=== PATIENT | male | born 2000 | race Caucasian/White ===

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

== ENCOUNTER → 2018-09-24 | Outpatient (CLI) | payer SELFPAY | LOC: M OUTALCOH 11:21 | PROVIDERS: ATTEND Psychiatry & Neurology Psychiatry | DX: Z03.89 Encounter for observation for other suspected diseases and conditions ruled out (principal) ==

== ENCOUNTER 2018-10-01 09:41 | Outpatient (RCR) | payer SELFPAY | END 2018-10-14 | LOC: M OUTALCOH 09:41 | PROVIDERS: ATTEND Psychiatry & Neurology Psychiatry | DX: F12.20 Cannabis dependence, uncomplicated (principal); F17.200 Nicotine dependence, unspecified, uncomplicated ==

== ENCOUNTER → 2019-06-23 | Outpatient (REF) | payer OTHER ==
[2019-06-23 14:35] LABS: CHLAMYDIA DNA AMPLIFICATION NEGATIVE (NEGATIVE); GC DNA AMPLIFICATION NEGATIVE (NEGATIVE)
== END ==
LOC: M LAB REF 11:52
PROVIDERS: ATTEND Surgery
DX: A64 Unspecified sexually transmitted disease (principal)

== ENCOUNTER 2019-10-01 22:22 | Emergency (ER) | payer MEDICAID, OTHER ==
[~2019-10-01] VITALS: Ht 175.3 cm; Wt 72.7 kg
[2019-10-01 22:22] VITALS: BP 133/70
[2019-10-01] MEDS ORDERED: PRED20TA PO (22:49)
[2019-10-01] MEDS ORDERED: ELIM5CRE2 TOP (22:49)
[2019-10-01] MEDS ORDERED: HYDR-643 PO (22:49)
[2019-10-01] MEDS ORDERED: hydrOXYzine 25 MG TAB PO STA (22:54)
[2019-10-01] MEDS ORDERED: NIX CREME RINSE 1% 60 ML KIT TOP STA (22:54)
[2019-10-01] MEDS ORDERED: predniSONE 20 MG TAB PO ONE (23:00)
== END 2019-10-01 23:07 | disposition home or self-care (01) ==
LOC: M ED 22:22
DX: B86 Scabies (principal); R21 Rash and other nonspecific skin eruption; F17.218 Nicotine dependence, cigarettes, with other nicotine-induced disorders; F41.9 Anxiety disorder, unspecified; F32.9 Major depressive disorder, single episode, unspecified

== ENCOUNTER 2019-11-29 00:21 | Emergency (ER) | payer MEDICAID ==
[~2019-11-29] VITALS: Ht 175.3 cm; Wt 81.2 kg
[~2019-11-29 00:21] MED LIST: ELIM5CRE2 TOP; HYDR-643 PO; PRED20TA PO
[2019-11-29 00:22] VITALS: BP 140/90
[2019-11-29 02:14] LABS: INFLUENZA A AMPLIFICATION NEGATIVE (NEGATIVE); INFLUENZA B AMPLIFICATION NEGATIVE (NEGATIVE)
== END 2019-11-29 02:55 | disposition left against medical advice (07) ==
LOC: M ED 00:21
DX: Z53.21 Procedure and treatment not carried out due to patient leaving prior to being seen by health care provider (principal)

== ENCOUNTER 2019-12-28 17:55 | Emergency (ER) | payer MEDICAID ==
[~2019-12-28] VITALS: Ht 172.7 cm; Wt 80.6 kg
[2019-12-28 17:55] VITALS: BP 133/75
[2019-12-28 18:23] LABS: BASO # 0.1 10^3/uL (0.0-0.2); BASO % 0.6 % (0.0-1.0); EOS # 0.3 10^3/uL (0.0-0.5); EOS % 3.4 % (0.0-3.0); HEMOGLOBIN 15.1 g/dl (13.5-17.5); LYMPH # 1.7 10^3/uL (1.5-5.0); LYMPH % 21.2 % (24.0-44.0); MEAN CORPUSCULAR HEMOGLOBIN 31.2 pg (27.0-33.0); MEAN CORPUSCULAR HGB CONC 33.6 g/dl (32.0-36.5); MONO # 0.6 10^3/uL (0.0-0.8); NEUTROPHILS # 5.4 10^3/uL (1.5-8.5); NEUTROPHILS % 67.4 % (36.0-66.0); PLATELET COUNT, AUTOMATED 183 10^3/uL (150-450); RED BLOOD COUNT 4.84 10^6/uL (4.30-6.10)
--- NOTE | 2019-12-28 18:52 | REP ---
CHEST, TWO VIEWS: There is no evidence of acute infiltrate. No pleural effusion is seen. The heart is normal in size. The mediastinal silhouette is unremarkable. The visualized osseous structures are intact. IMPRESSION: No acute pulmonary disease. Electronically Signed by Jerald Bhatt MD 12/28/2019 07:29 P
[2019-12-28 18:54] LABS: AMPHETAMINES LEVEL URINE NEGATIVE (NEGATIVE); BARBITURATES URINE NEGATIVE (NEGATIVE); BENZODIAZEPINES URINE NEGATIVE (NEGATIVE); CANNABINOIDS URINE POSITIVE (NEGATIVE); COCAINE METABOLITE URINE NEGATIVE (NEGATIVE); METHADONE URINE NEGATIVE (NEGATIVE); OPIATES URINE NEGATIVE (NEGATIVE); PHENCYCLIDINE URINE NEGATIVE (NEGATIVE)
[2019-12-28 18:58] LABS: ALBUMIN 4.4 GM/DL (3.2-5.2); ALT/SGPT 28 U/L (12-78); BILIRUBIN,DIRECT 0.1 MG/DL (0.0-0.2); BILIRUBIN,TOTAL 0.3 MG/DL (0.2-1.0); BLOOD UREA NITROGEN 9 MG/DL (7-18); CALCIUM LEVEL 9.5 MG/DL (8.5-10.1); CARBON DIOXIDE LEVEL 27 MEQ/L (21-32); CHLORIDE LEVEL 106 MEQ/L (98-107); CK-MB VALUE MASS 3.4 NG/ML (<3.6); CPK CREATINE PHOSPHOKINASE 587 U/L (39-308); CREATININE FOR GFR 0.95 MG/DL (0.70-1.30); FREE T4 1.06 NG/DL (0.76-1.46); GLOMERULAR FILTRATION RATE > 60.0 (>60); GLUCOSE, FASTING 75 MG/DL (70-100); LIPASE 109 U/L (73-393); MB/CK RELATIVE INDEX 0.58 (< OR =4); NT-PRO BNP 75 PG/ML (<125); SODIUM LEVEL 140 MEQ/L (136-145); TOTAL PROTEIN 7.6 GM/DL (6.4-8.2); TROPONIN I < 0.02 NG/ML (< 0.10)
[2019-12-28] MEDS ORDERED: KETOROLAC 60 MG/2 ML VIAL (J1885 PER 15MG) IM ONE (19:15)
--- NOTE | 2019-12-29 20:30 | ECGEPIP ---
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
== END 2019-12-28 19:34 | disposition home or self-care (01) ==
LOC: M ED 17:55
DX: F12.10 Cannabis abuse, uncomplicated (principal); R74.8 Abnormal levels of other serum enzymes; R07.89 Other chest pain; F17.200 Nicotine dependence, unspecified, uncomplicated
CPT/HCPCS: 71046; 80048; 80076; 80307; 81001; 82550; 82553; 83690; 83880; 84439; 84443; 85025; 93005; 96372; 99284; J1885

== ENCOUNTER → 2020-02-13 | Outpatient (REF) | payer MEDICAID, SELFPAY ==
[2020-02-13 15:45] LABS: ALBUMIN 4.2 GM/DL (3.2-5.2); ALT/SGPT 34 U/L (12-78); BILIRUBIN,TOTAL 0.4 MG/DL (0.2-1.0); BLOOD UREA NITROGEN 7 MG/DL (7-18); CALCIUM LEVEL 9.9 MG/DL (8.5-10.1); CARBON DIOXIDE LEVEL 32 MEQ/L (21-32); CHLORIDE LEVEL 104 MEQ/L (98-107); CREATININE FOR GFR 0.98 MG/DL (0.70-1.30); GLOMERULAR FILTRATION RATE > 60.0 (>60); GLUCOSE, FASTING 98 MG/DL (70-100); POTASSIUM SERUM 4.8 MEQ/L (3.5-5.1); SODIUM LEVEL 141 MEQ/L (136-145); TOTAL PROTEIN 7.7 GM/DL (6.4-8.2)
[2020-02-13 16:35] LABS: HIV 1&2 SCREEN CENTAUR NEGATIVE (NEGATIVE)
== END ==
LOC: M SFHCPLAZ 12:12
PROVIDERS: ATTEND Physician Assistant
DX: Z20.5 Contact with and (suspected) exposure to viral hepatitis (principal); Z20.6 Contact with and (suspected) exposure to human immunodeficiency virus [HIV]

== ENCOUNTER 2020-03-24 11:12 | Emergency (ER) | payer MEDICAID ==
[~2020-03-24] VITALS: Ht 172.7 cm; Wt 78.5 kg
[2020-03-24] MEDS ORDERED: PENICILLIN V POTASSIUM 500 MG TAB PO ONE (12:15)
[2020-03-24] MEDS ORDERED: IBUPROFEN 800 MG TAB PO ONE (12:15)
[2020-03-24 12:39] LABS: BASO # 0.1 10^3/uL (0.0-0.2); BASO % 0.6 % (0.0-1.0); EOS # 0.1 10^3/uL (0.0-0.5); EOS % 1.3 % (0.0-3.0); HEMATOCRIT 45.5 % (42.0-52.0); HEMOGLOBIN 15.1 g/dl (13.5-17.5); LYMPH # 1.6 10^3/uL (1.5-5.0); MEAN CORPUSCULAR HEMOGLOBIN 30.6 pg (27.0-33.0); MEAN CORPUSCULAR HGB CONC 33.2 g/dl (32.0-36.5); MEAN CORPUSCULAR VOLUME 92.3 fl (80.0-96.0); MONO # 0.5 10^3/uL (0.0-0.8); MONO % 5.2 % (0.0-5.0); NEUTROPHILS # 7.1 10^3/uL (1.5-8.5); NEUTROPHILS % 75.6 % (36.0-66.0); PLATELET COUNT, AUTOMATED 184 10^3/uL (150-450); RED BLOOD COUNT 4.93 10^6/uL (4.30-6.10); WHITE BLOOD COUNT 9.4 10^3/uL (4.0-10.0)
[2020-03-24 13:03] LABS: CK-MB VALUE MASS 4.3 NG/ML (<3.6); CPK CREATINE PHOSPHOKINASE 574 U/L (39-308); MB/CK RELATIVE INDEX 0.75 (< OR =4); TROPONIN I < 0.02 NG/ML (< 0.10)
[2020-03-24] MEDS ORDERED: NS 1,000 ML IV ONE (13:15)
[2020-03-24] MEDS ORDERED: PENI500T PO (13:55)
[2020-03-24 14:42] VITALS: BP 115/68
--- NOTE | 2020-03-24 16:08 | ECGEPIP ---
[facility] - ED Test Date: 2020-03-24 Pat Name: ROB LEDEZMA Department: Room: - Gender: Male Estimate Clerk: ANNIE : 2000 Requested By: KWAN London PA-C Order Number: [id number] Reading MD: Gadiel Pierre Measurements Intervals [place] Rate: 71 P: 38 [place]: 133 QRS: 56 QRSD: 97 T: 38 QT: 341 QTc: 373 Interpretive Statements SINUS RHYTHM WITH SINUS ARRHYTHMIA POSSIBLE RIGHT VENTRICULAR CONDUCTION DELAY NONSPECIFIC ST T WAVE CHANGES CW 12/28/[address] T WAVE CHANGES Electronically Signed on 03-24-2020 16:07:34 EDT by Gadiel Pierre
--- NOTE | 2020-03-25 09:35 | REP ---
CHEST PA AND LATERAL: 03/24/2020. COMPARISON: 12/28/2019. CLINICAL HISTORY: Left-sided chest pain. FINDINGS: Lung correia remain well inflated. The CP angles are sharply defined. There is no effusion, infiltrate, atelectasis, or mass. No pneumothorax or pneumomediastinum. The heart, mediastinal and hilar contours are normal. Aorta and airway unremarkable. The bony ribs, clavicles, and shoulders included are grossly unremarkable. IMPRESSION: 1. Negative chest. Stable examination. No pneumothorax, visible bony abnormality, or parenchymal lung finding. Heart and mediastinum unremarkable. Electronically Signed by Favian Matamoros MD 03/25/2020 09:42 A
== END 2020-03-24 14:47 | disposition home or self-care (01) ==
LOC: M ED 11:12
DX: M62.82 Rhabdomyolysis (principal); K02.9 Dental caries, unspecified; R94.31 Abnormal electrocardiogram [ECG] [EKG]; F17.210 Nicotine dependence, cigarettes, uncomplicated; Z86.59 Personal history of other mental and behavioral disorders

== ENCOUNTER 2020-05-30 12:18 | Emergency (ER) | payer MEDICAID ==
[~2020-05-30] VITALS: Ht 172.7 cm; Wt 73.2 kg
[~2020-05-30 12:18] MED LIST changes: +PENI500T PO
[2020-05-30 12:20] VITALS: BP 133/73
[2020-05-30] MEDS ORDERED: NS 1,000 ML IV ONE (13:45)
[2020-05-30 14:27] LABS: BASO # 0.1 10^3/uL (0.0-0.2); BASO % 0.5 % (0.0-1.0); EOS # 0.1 10^3/uL (0.0-0.5); EOS % 0.8 % (0.0-3.0); HEMATOCRIT 38.4 % (42.0-52.0); HEMOGLOBIN 12.9 g/dl (13.5-17.5); LYMPH # 1.3 10^3/uL (1.5-5.0); LYMPH % 11.6 % (24.0-44.0); MEAN CORPUSCULAR HEMOGLOBIN 30.6 pg (27.0-33.0); MEAN CORPUSCULAR HGB CONC 33.6 g/dl (32.0-36.5); MEAN CORPUSCULAR VOLUME 91.2 fl (80.0-96.0); MONO # 0.6 10^3/uL (0.0-0.8); MONO % 5.1 % (0.0-5.0); NEUTROPHILS # 9.2 10^3/uL (1.5-8.5); NEUTROPHILS % 81.6 % (36.0-66.0); PLATELET COUNT, AUTOMATED 182 10^3/uL (150-450); RED BLOOD COUNT 4.21 10^6/uL (4.30-6.10); WHITE BLOOD COUNT 11.3 10^3/uL (4.0-10.0)
[2020-05-30 14:56] LABS: ALBUMIN 4.1 GM/DL (3.2-5.2); ALT/SGPT 31 U/L (12-78); BILIRUBIN,DIRECT 0.1 MG/DL (0.0-0.2); BILIRUBIN,TOTAL 0.4 MG/DL (0.2-1.0); BLOOD UREA NITROGEN 13 MG/DL (7-18); CALCIUM LEVEL 9.9 MG/DL (8.5-10.1); CARBON DIOXIDE LEVEL 28 MEQ/L (21-32); CHLORIDE LEVEL 110 MEQ/L (98-107); CK-MB VALUE MASS 3.1 NG/ML (<3.6); CPK CREATINE PHOSPHOKINASE 477 U/L (39-308); CREATININE FOR GFR 0.94 MG/DL (0.70-1.30); GLOMERULAR FILTRATION RATE > 60.0 (>60); GLUCOSE, FASTING 93 MG/DL (70-100); LIPASE 106 U/L (73-393); MB/CK RELATIVE INDEX 0.65 (< OR =4); POTASSIUM SERUM 4.3 MEQ/L (3.5-5.1); SODIUM LEVEL 142 MEQ/L (136-145); THYROID STIMULATING HORMONE 0.711 uIU/ML (0.358-3.740); TOTAL PROTEIN 7.4 GM/DL (6.4-8.2); TROPONIN I < 0.02 NG/ML (< 0.10)
[2020-05-30 15:21] LABS: IRON (FE) 59 UG/DL (65-175); PERCENT SATURATION 22.6 % (19.7-50.0); TOTAL IRON BINDING CAPACITY 261 UG/DL (250-450)
[2020-05-30 15:23] LABS: AMPHETAMINES LEVEL URINE NEGATIVE (NEGATIVE); BARBITURATES URINE NEGATIVE (NEGATIVE); BENZODIAZEPINES URINE NEGATIVE (NEGATIVE); CANNABINOIDS URINE POSITIVE (NEGATIVE); COCAINE METABOLITE URINE NEGATIVE (NEGATIVE); METHADONE URINE NEGATIVE (NEGATIVE); OPIATES URINE NEGATIVE (NEGATIVE); PHENCYCLIDINE URINE NEGATIVE (NEGATIVE)
[2020-05-30 15:32] LABS: VITAMIN B12 LEVEL 470 PG/ML (247-911)
[2020-05-30] MEDS ORDERED: ISOVUE-370 76% 100ML VIAL As Ordered ONE (16:03)
[2020-05-30] MEDS ORDERED: HM S0.65 NARES (18:00)
== END 2020-05-30 18:10 | disposition left against medical advice (07) ==
LOC: M ED 12:18
DX: J00 Acute nasopharyngitis [common cold] (principal); B34.8 Other viral infections of unspecified site; D64.9 Anemia, unspecified; Z53.21 Procedure and treatment not carried out due to patient leaving prior to being seen by health care provider; F33.9 Major depressive disorder, recurrent, unspecified; F41.9 Anxiety disorder, unspecified
CPT/HCPCS: 71275; 80048; 80076; 80307; 82550; 82553; 82607; 83550; 83690; 84443; 85025; 85379; 87486; 87581; 87633; 87798; 96360; 99283; Q9967

== ENCOUNTER 2020-06-04 16:20 | Emergency (ER) | payer MEDICAID ==
[~2020-06-04 16:20] MED LIST changes: +HM S0.65 NARES
[2020-06-04 19:23] LABS: BASO # 0.1 10^3/uL (0.0-0.2); BASO % 0.5 % (0.0-1.0); EOS # 0.1 10^3/uL (0.0-0.5); EOS % 0.9 % (0.0-3.0); HEMATOCRIT 41.8 % (42.0-52.0); HEMOGLOBIN 14.1 g/dl (13.5-17.5); LYMPH # 1.6 10^3/uL (1.5-5.0); LYMPH % 13.9 % (24.0-44.0); MEAN CORPUSCULAR HEMOGLOBIN 30.9 pg (27.0-33.0); MEAN CORPUSCULAR HGB CONC 33.7 g/dl (32.0-36.5); MEAN CORPUSCULAR VOLUME 91.7 fl (80.0-96.0); MONO # 0.6 10^3/uL (0.0-0.8); MONO % 5.5 % (0.0-5.0); NEUTROPHILS # 9.2 10^3/uL (1.5-8.5); NEUTROPHILS % 78.8 % (36.0-66.0); PLATELET COUNT, AUTOMATED 227 10^3/uL (150-450); RED BLOOD COUNT 4.56 10^6/uL (4.30-6.10); WHITE BLOOD COUNT 11.7 10^3/uL (4.0-10.0)
[2020-06-04 19:34] LABS: INR 1.01; PROTHROMBIN TIME 13.5 SECONDS (12.5-14.3)
[2020-06-04 19:35] LABS: PARTIAL THROMBOPLASTIN TIME 31.5 SECONDS (24.2-38.5)
[2020-06-04 19:49] LABS: BLOOD UREA NITROGEN 11 MG/DL (7-18); CALCIUM LEVEL 9.4 MG/DL (8.5-10.1); CARBON DIOXIDE LEVEL 25 MEQ/L (21-32); CHLORIDE LEVEL 108 MEQ/L (98-107); CREATININE FOR GFR 0.96 MG/DL (0.70-1.30); GLOMERULAR FILTRATION RATE > 60.0 (>60); GLUCOSE, FASTING 92 MG/DL (70-100); POTASSIUM SERUM 3.7 MEQ/L (3.5-5.1); SODIUM LEVEL 139 MEQ/L (136-145)
[2020-06-04 19:50] LABS: ALBUMIN 4.1 GM/DL (3.2-5.2); ALT/SGPT 30 U/L (12-78); BILIRUBIN,DIRECT 0.1 MG/DL (0.0-0.2); BILIRUBIN,TOTAL 0.4 MG/DL (0.2-1.0); CK-MB VALUE MASS 2.6 NG/ML (<3.6); CPK CREATINE PHOSPHOKINASE 464 U/L (39-308); LIPASE 101 U/L (73-393); MB/CK RELATIVE INDEX 0.56 (< OR =4); TOTAL PROTEIN 7.4 GM/DL (6.4-8.2); TROPONIN I < 0.02 NG/ML (< 0.10)
--- NOTE | 2020-06-04 20:35 | ECGEPIP ---
[facility] - ED Test Date: 2020-06-04 Pat Name: ROB LEDEZMA Department: Room: - Gender: Male Rivet Sorter: RAJAN : 2000 Requested By: Gadiel Pierre Order Number: [id number] Reading MD: Lima Onofre Measurements Intervals [place] Rate: 60 P: 25 [place]: 130 QRS: 71 QRSD: 105 T: 61 QT: 389 QTc: 389 Interpretive Statements SINUS RHYTHM WITH MARKED SINUS ARRHYTHMIA POSSIBLE RIGHT VENTRICULAR CONDUCTION DELAY MODERATE ST DEPRESSION Electronically Signed on 06-04-2020 20:35:24 EDT by Lima Onofre
== END 2020-06-04 19:09 | disposition left against medical advice (07) ==
LOC: M ED 16:20 → EDBD 16:20 → M ED 19:09
DX: Z53.21 Procedure and treatment not carried out due to patient leaving prior to being seen by health care provider (principal)

== ENCOUNTER 2020-07-09 22:27 | Emergency (ER) | payer MEDICAID ==
[~2020-07-09] VITALS: Ht 172.7 cm; Wt 75.2 kg
[2020-07-10 02:57] LABS: HEMATOCRIT 39.2 % (42.0-52.0); MEAN CORPUSCULAR HEMOGLOBIN 30.4 pg (27.0-33.0); MEAN CORPUSCULAR HGB CONC 33.2 g/dl (32.0-36.5); MEAN CORPUSCULAR VOLUME 91.8 fl (80.0-96.0); PLATELET COUNT, AUTOMATED 164 10^3/uL (150-450); RED BLOOD COUNT 4.27 10^6/uL (4.30-6.10); WHITE BLOOD COUNT 8.2 10^3/uL (4.0-10.0)
[2020-07-10 03:27] LABS: BLOOD UREA NITROGEN 11 MG/DL (7-18); CALCIUM LEVEL 8.6 MG/DL (8.5-10.1); CARBON DIOXIDE LEVEL 27 MEQ/L (21-32); CHLORIDE LEVEL 108 MEQ/L (98-107); CREATININE FOR GFR 0.86 MG/DL (0.70-1.30); GLOMERULAR FILTRATION RATE > 60.0 (>60); GLUCOSE, FASTING 92 MG/DL (70-100); SODIUM LEVEL 139 MEQ/L (136-145)
[2020-07-10 04:51] VITALS: BP 110/57
--- NOTE | 2020-07-10 08:32 | REP ---
INDICATION: chest pain. Repeat dictation. Preliminary report is provided at the time of the exam by araceli MARES. COMPARISON: June 04, 2020. TECHNIQUE: Two views.. FINDINGS: The lungs are well inflated and free of infiltrate. The pleural angles are sharp. The heart size is normal. Pulmonary vasculature is not increased. No significant bony abnormality is seen. Monitoring electrodes overlie the chest on the frontal view. IMPRESSION: Negative chest x-ray. <Electronically signed by Matthew Fox > 07/10/20 0871
--- NOTE | 2020-07-10 09:37 | ECGEPIP ---
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
== END 2020-07-10 04:56 | disposition home or self-care (01) ==
LOC: M ED 22:27
DX: R07.9 Chest pain, unspecified (principal); F17.200 Nicotine dependence, unspecified, uncomplicated; F12.10 Cannabis abuse, uncomplicated; R94.31 Abnormal electrocardiogram [ECG] [EKG]

== ENCOUNTER 2020-09-06 19:53 | Emergency (ER) | payer MEDICAID ==
[~2020-09-06] VITALS: Ht 172.7 cm; Wt 73.7 kg
[2020-09-06 19:53] VITALS: BP 121/56
== END 2020-09-06 20:13 | disposition left against medical advice (07) ==
LOC: M ED 19:53
DX: Z53.21 Procedure and treatment not carried out due to patient leaving prior to being seen by health care provider (principal)

== ENCOUNTER 2020-10-29 22:33 | Emergency (ER) | payer MEDICAID ==
[~2020-10-29] VITALS: Ht 172.7 cm; Wt 75.0 kg
--- OUTSIDE RECORDS SUMMARY | 2020-10-29 22:39 | CCD ---
Author Author [facility] Organization [facility] Address Unknown Phone Unavailable Care Team Providers Care Dining Car Steward Name Role Phone Melina Beth BUSINESS ANALYST [employer] Unavailable Unavailable Melina Beth BUSINESS ANALYST [employer] Unavailable Unavailable Rocio Bethe BUSINESS ANALYST [employer] Unavailable Unavailable Veley, Melina BUSINESS ANALYST [employer] Unavailable Unavailable Veley, Melina BUSINESS ANALYST [employer] Unavailable Unavailable Veley, Melina BUSINESS ANALYST [employer] Unavailable Unavailable Veley, Melina BUSINESS ANALYST [employer] Unavailable Unavailable Veley, Melina BUSINESS ANALYST [employer] Unavailable Unavailable Veley, Melina BUSINESS ANALYST [employer] Unavailable Unavailable Veley, Melina BUSINESS ANALYST [employer] Unavailable Unavailable Veley, Melina BUSINESS ANALYST [employer] Unavailable Unavailable Veley, Melina BUSINESS ANALYST [employer] Unavailable Unavailable Veley, Melina BUSINESS ANALYST [employer] Unavailable Unavailable Veley, Melina BUSINESS ANALYST [employer] Unavailable Unavailable Veley, Melina BUSINESS ANALYST [employer] Unavailable Unavailable Veley, Melina BUSINESS ANALYST [employer] Unavailable Unavailable Veley, Melina BUSINESS ANALYST [employer] Unavailable Unavailable Veley, Melina BUSINESS ANALYST [employer] Unavailable Unavailable Veley, Melina BUSINESS ANALYST [employer] Unavailable Unavailable Veley, Melina BUSINESS ANALYST [employer] Unavailable Unavailable Veley, Melina BUSINESS ANALYST [employer] Unavailable Unavailable Veley, Melina BUSINESS ANALYST [employer] Unavailable Unavailable Veley, Melina BUSINESS ANALYST [employer] Unavailable Unavailable Veley, Melina BUSINESS ANALYST [employer] Unavailable Unavailable Veley, Melina BUSINESS ANALYST [employer] Unavailable Unavailable Veley, Melina BUSINESS ANALYST [employer] Unavailable Unavailable Veley, Melina BUSINESS ANALYST [employer] Unavailable Unavailable Veley, Melina BUSINESS ANALYST [employer] Unavailable Unavailable Veley, Melina BUSINESS ANALYST [employer] Unavailable Unavailable Veley, Melina BUSINESS ANALYST [employer] Unavailable Unavailable Veley, Melina BUSINESS ANALYST [employer] Unavailable Unavailable Nella Ledezma MD Unavailable Unavailable Nella Ledezma MD Unavailable Unavailable Nella Ledezma MD Unavailable Unavailable Nella Ledezma MD Unavailable Unavailable Nella Ledezma MD Unavailable Unavailable Nella Ledezma MD Unavailable Unavailable Re-disclosure Warning The records that you are about to access may contain information from federally-assisted alcohol or drug abuse programs. If such information is present, then the following federally mandated warning applies: This information has been disclosed to you from records protected by federal confidentiality rules (42 CFR part 2). The federal rules prohibit you from making any further disclosure of this information unless further disclosure is expressly permitted by the written consent of the person to whom it pertains or as otherwise permitted by 42 CFR part 2. A general authorization for the release of medical or other information is NOT sufficient for this purpose. The Federal rules restrict any use of the information to criminally investigate or prosecute any alcohol or drug abuse patient.The records that you are about to access may contain highly sensitive health information, the redisclosure of which is protected by Article 27-F of the [facility] Public Health law. If you continue you may have access to information: Regarding HIV / AIDS; Provided by facilities licensed or operated by the [facility] Office of Mental Health; or Provided by the [facility] Office for People With Developmental Disabilities. If such information is present, then the following [facility] mandated warning applies: This information has been disclosed to you from confidential records which are protected by state law. State law prohibits you from making any further disclosure of this information without the specific written consent of the person to whom it pertains, or as otherwise permitted by law. Any unauthorized further disclosure in violation of state law may result in a fine or penitentiary sentence or both. A general authorization for the release of medical or other information is NOT sufficient authorization for further disc losure. Encounters Encounter Providers Location Date Indications Data Source(s ) Unknown [address] [facility] [address] 07/10/2020 12:00:00 AM EDT eCW1 ([facility]) Unknown [address] [facility] [address] 04/04/2020 12:00:00 AM EDT eCW1 ([facility]) Outpatient Attender: Melina NARAYANAN 02/21/2020 07:47:0 2 PM EDT [facility] Outpatient Attender: Melina NARAYANAN 02/11/2020 12:14:3 3 AM EDT [facility] Emergency Attender: Diego Ledezma MD [id number] 01/12 12:29:26 PM EDT - 01/25/2020 01:41:00 PM EDT [facility] Patient discharged. Outpatient 01/06/2020 06:03:00 AM EDT [facility] Outpatient Attender: Melina Beth NP 11/04/2019 08:01:1 7 PM EST [facility] Medications Medication Brand Name Start Date Product Form Dose Route Admi nistrative Instructions Pharmacy Instructions Status Indications Reaction Description Data Source(s) Ibuprofen 400 MG Oral Tablet ibuprofen (ADVIL,MOTRIN) tablet 600 mg ibuprofen (ADVIL,MOTRIN) tablet 600 mg 01/25/2020 01:35:00 PM EDT 600 mg Oral completed 600 mg, Oral, Once, Thu01/25/20 at 1335, For 1 dose [facility] Medication administered onsite Cyclobenzaprine hydrochloride 10 MG Oral Tablet cyclobenzaprine (FLEXERIL) tablet 10 mg cyclobenzaprine (FLEXERIL) tablet 10 mg 01/25/2020 01:35:00 PM EDT 10 mg Oral completed 10 mg, Oral, O nce, 01/25/20 at 1335, For 1 dose [facility] Medication administered onsite Cyclobenzaprine hydrochloride 10 MG Oral Tablet cyclobenzaprine (FLEXERIL) 10 MG tablet cyclobenzaprine (FLEXERIL) 10 MG tablet 01/25/2020 12:00:00 AM E DT 10 mg Oral active Take 1 tab let (10 mg total) by mouth 2 (two) times a day as needed for muscle spasms [facility] Ibuprofen 600 MG Oral Tablet ibuprofen (ADVIL,MOTRIN) 600 MG tablet ibuprofen (ADVIL,MOTRIN) 600 MG tablet 01/25/2020 12:00:00 AM EDT 600 mg Oral active Take 1 tablet (600 m g total) by mouth every 6 (six) hours as needed for pain or fever [facility] methylPREDNISolone (MEDROL, SYLVESTER,) 4 MG tablet [id number] 01/25/2020 12:00:00 AM EDT active follow package di rections [facility] 5 % 10/02/2019 12:00:00 AM EST cream 60 MASSAGE INTO SKIN FROM HEAD TO SOLES OF FEET FOR ONE DOSE THEN LEAVE ON FOR 8-14 HOURS THEN REMOVE BY THOROUGH WASHING MASSAGE INTO SKIN FROM HEAD TO SOLES OF FEET FOR ONE DOSE THEN LEAVE ON FOR 8-14 HOURS THEN REMOVE BY THOROUGH WASHING SOLD: 10/11/2019 [facility] 10 mg 10/02/2019 12:00:00 AM EST tablet 12 TAKE ONE TABLET BY MOUTH THREE TIMES A DAY FOR ANXIETY TAKE ONE TABLET BY MOUTH THREE TIMES A DAY FOR ANXIETY SOLD: 10/11/2019 [facility] Insurance Providers Payer name Policy type / Coverage type Policy ID Covered libertarian ID Covered libertarian's relationship to [place] Policy [place] Plan Information EMEDNY [id number] SP [id number] MEDICAID M [id number] S [id number] Medicaid P [id number] S [id number] SELF PAY ONLY [id number] SP [id number] MEDICAID [id number] MEDICAID [id number] Sandi [id number] MEDICAID [id number] SP [id number] [employer] DEPT [id number] SP [id number] [place] [employer] [place] O [id number] S [id number] [employer] DEPT [id number] SP [id number] SELF PAY ONLY [id number] SP [id number] [place] [employer] DEP [id number] SP [id number] SELF PAY ONLY UNAVAILABLE UNAV AILABLE SELF PAY UNAVAILABLE UNAVAILA BLE MEDICAID [id number] SP [id number] [facility] [id number] SP [id number] MEDICAID [facility] [id number] SP [id number] Problems, Conditions, and Diagnoses Code Display Name Description Problem Type Effective Dates Data Source(s) M94.0 Chondrocostal junction syndrome [Tietze] Chondrocostal junction syndrome (tietze) Diagnosis 01/25/2020 12:29:26 PM EDT [facility] Surgeries/Procedures Procedure Description Date Indications Data Source(s) TROPONIN QUANTITATIVE POCT TROPONIN Routine 01/25/2020 12:45 PM EDT 01/25/2020 04:45:00 PM EDT [facility] ECG ROUTINE ECG W/LEAST 12 LDS TRCG ONLY W/O I&R ECG 12-LEAD STAT 01/25/2020 12:33 PM EDT 01/25/2020 04:33:31 PM EDT [facility] Results ID Date Data Source [id number] 01/25/2020 03:17:28 [facility] Name Date of Age Gend*PT [id number] Manuel Ledezma 2000 19 years M EDPT Location Admission Date/Time Visit ID Attending [id number] 01/25/20 1229 --- --- EPI ID CSN Admitting Provider [id number] ---Attestation signed by Diego Ledezma MD at 01/25/2020 3:17 DARRIAN NEWELL Attestations:Attestation Type: Mid-Level: SUPERVISED APC: Based on the medical record thecare appears appropriate Provider in Triage NotesNo notes on fileHistory of Present IllnessChief ComplaintPatient presents with Chest Pain pt reports chest tightness for ~ 1month, states pain initally was on and off,now pain is steady. "I have a little shortness of breath"HPI Chief complaint: left sided chest painRadiation: backQuality:ache, sharpSeverity: 02/21Onset: 1 month agoDuration: on and off since on setFrequency:intermittentProgression: sameAssociated symptoms: noneAggravated by: movement, deep breath, palpationRelieved by: certain positionRisk Factors: noneSource: patientPatient has been seen at various ED for the same. He states he was givenprednisone in the past which helped his symptoms. He hasnt seen a cardiologistand concerned about it "being my heart".HistoryHistory reviewed. No pertinent past medical history.History reviewed. No pertinent surgical history.History reviewed. No pertinent family history.Social HistoryTobacco Use Smoking status: Current Every Day Smoker Packs/day: 1.00 Years: 9.00 Pack years: 9.00 Types: Cigarettes Smokeless tobacco: Never UsedSubstance Use Topics Alcohol use: Yes Alcohol/week: 12.0 standard drinks Types: 12 Cans of beer per week Drug use: Yes Frequency: 1.0 times per week Types: MarijuanaROSReview of SystemsConstitutional: Negative for chills, fatigue and fever.HENT: Negative.Eyes: Negative.Respiratory: Negative for cough, chest tightness, shortness of breath andstridor.Cardiovascular: Positive for chest pain. Negative for palpitations and legswelling.Gastrointestinal: Negative for abdominal distention, abdominal pain, blood instool, constipation, diarrhea, nausea and vomiting.Genitourinary: Negative for dysuria and frequency.Musculoskeletal: Positive for back pain.Neurological: Negative for dizziness, weakness, numbness and headaches.All other systems reviewed and are negative.Physical ExamBP 135/90 (BP Location: Left upper arm, Patient Position: Sitting) | Pulse 97| Temp 98.2 F (Oral) | Resp 18 | Ht 69" | Wt 83.9 kg | SpO2 99% | BMI27.32 kg/m Physical ExamConstitutional: He is oriented to person, place, and time. He appearswell-developed and well-nourished.HENT:Head: Normocephalic and atraumatic.Eyes: Pupils are equal, round, and reactive to light.Neck: Normal range of motion. Neck supple.Cardiovascular: Normal rate, regular rhythm, normal heart sounds and intactdistal pulses.Pulmonary/Chest: Effort normal and breath sounds normal. No respiratorydistress. He has no wheezes. He has no rales.Chest wall is not dull to percussion. He exhibits tenderness. He exhibits nobony tend erness, no crepitus, no edema and no swelling.Abdominal: Soft. Bowel sounds are normal. He exhibits no distension. There is notenderness. There is no rebound and no guarding.Musculoskeletal: Normal range of motion. Thoracic back: He exhibits tenderness and spasm.Neurological: He is alert and oriented to person, place, and time.Skin: Skin is warm and dry.Psychiatric: He has a normal mood and affect. His behavior is normal. Judgmentand thought content normal.Nursing note and vitals reviewed.ED CourseProceduresMDMNumber of Diagnoses or Management OptionsCostochondritis:Test ordered/Reason: ekg; troponinEKG: January-normal sinus rhythm; Vent Rate 89 [place] interval 132 QRS [id number] no STEMI changesTreatments given and/or ordered: flexeril, ibuporfenTIMI score 0Patient has obvious muscle spasms to back and chest and symptoms are consistentwith costochondritis. Normal vital signs are noted. Patient admits to exercisemaneuvers at home. He is advised to follow up outpatient. Patient navigatorreferral placed for set up of PCP.Disposition plan-Rx given medrol, flexeril, ibuprofen, Follow up instructionsDiscussed plan with patient. They are in agreement with plan. Advised of signsand symptoms to return to the Emergency Department. Advised of the importance ofOutpatient Follow up. All questions were addressed and answered.This was electronically signed by IGGY Phelps, 01/25/20 1:20 PM.IGGY Phelps01/25/20 1509Diego Ledezma MD01/25/20 1517 Name Value Range Interpretation Code Description Data Marilou rce(s) Supporting Document(s) ID Date Data Source [id number] 01/25/2020 12:57:29 PM EDT [facility] Name Value Range Interpretation Code Description Data Marilou rce(s) Supporting Document(s) EKG 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 [file] 6PeLOjLvf/+l8/dbm/lLUW3E75g+gzl7HOUESF3Um3Lj7D/fRKre4g2I0EifHmJsYam04fAt08br+Maria Elena [file] IGYgCjAwMDAwMDAwMTYgMDAwMDAgbiAKMDAwMDAwMD T5OBFeBKTjNEDyBKqmHGHxXWXrRFhpTPGiJLAqNE3qToHrIHYgQDLrDCqqXKWcBVAikrMOVMOrAQKxYY FzWPIqDVKaVJOoGHakOIOwQXEdKZMrUEQuROSiTO3kIhVfZWQzIZQ8KJBbEHNdBZJbvnBROZJuHJJiMN b1RNShCVGhPXPwHPyoHWJgUSOxRFS5KGSvUWTeTP8p FwHbJICwIUV5AgRoAHSfBGMjofXMEQMeIZZpBSL7VvLzYMMsQKUjWCxtDQKwCZPwIFxxJBBaIFOpWX6z SzGxPTRfIMTmCEzoSMShBTOjatNBCFVmSPEpHLJzLqXzLTKzXKYzVPreETThFEH8OIpwDSPcVUAiZZ9y VfUsXMDjDBI0VXkfULXbRCFzexFMIQKlLVUhJOejJO VjLMKqQQGaDLerEYObGZZcLSB4GNNcVYQxHC4vVeDvUNWzRUGuXQZqPuM9ZuQhWgRSyEHpxBnvifj7FC hkK5l8IUTjTCmfUM3vvqWxCQSzFuviDy7ntDY8BPLnGctQKb1Wj9CvgoP6xlNlEdS9XhS7KcVbME7C ID Date Data Source [id number] 01/25/2020 12:58:02 PM EDT [facility] Name Value Range Interpretation Code Description Data Marilou rce(s) Supporting Document(s) POC CTNI <0.01 ng/mL (0.01-0.07) L [facility] Less than 0.08: Myocardial injury unlike lyGreater than or equal to 0.08: Highlysuggestive of myocardial injuryCorrelation with rise and/or fall ofserial troponins, clinical symptoms,and ECG changes is necessary.PERFORMED BY [facility] CLINICAL STAFF Procedure Social History Code Duration Value Status Description Data Source(s ) Smoking 02/13/2020 12:00:00 AM EDT Current Smoker completed Curre nt Smoker eCW1 ([facility]) Smoking 02/13/2020 12:00:00 AM EDT Current Smoker completed Curre nt Smoker eCW1 ([facility]) Alcohol intake 01/25/2020 12:00:00 AM EDT Yes completed [facility] Cigarette pack-years 01/25/2020 12:00:00 AM EDT UNK completed [facility] Cigarettes smoked current (pack per day) - Reported 01/25/20 12:00:00 AM EDT UNK completed [facility] Smoking 01/25/2020 12:00:00 AM EDT Current every day smoker co mpleted Current every day smoker [facility] Vital Signs ID Date Data Source UNK Name Value Range Interpretation Code Description Data Source(s) Oxygen saturation in Arterial blood by Pulse oximetry 99 % 99 % [facility] Body mass index (BMI) [Ratio] 27.32 kg/m2 27.32 kg/m2 [facility] Body weight 83.915 kg 83.915 kg [facility] Body height 175.3 cm 175.3 cm [facility] Respiratory rate 18 /min 18 /min [facility] Body temperature 36.78 Belen 36.78 Belen [facility] Heart rate 97 /min 97 /min [facility] Diastolic blood pressure 90 mm[Hg] 90 mm[Hg] [facility] Systolic blood pressure 135 mm[Hg] 135 mm[Hg] [facility] Patient Treatment Plan of Care Planned Activity Planned Date Details Description Data Source (s) Ibuprofen 600 MG Oral Tablet 01/25/2020 12:00:00 AM EDT [facility] methylPREDNISolone (MEDROL, SYLVESTER,) 4 MG tablet 01/25/2020 12:00:00 A M EDT [facility] Cyclobenzaprine hydrochloride 10 MG Oral Tablet 01/25/2020 12:00:00 AM EDT [facility]
[2020-10-29 22:45] VITALS: BP 115/70
--- OUTSIDE RECORDS SUMMARY | 2020-10-30 02:01 | CCD ---
Author Author [facility] Organization [facility] Address Unknown Phone Unavailable Care Team Providers Care Senior Sharepoint Architect Name Role Phone Melina Beth COPY CHASER Unavailable Unavailable Melina Beth COPY CHASER Unavailable Unavailable Melina Beth COPY CHASER Unavailable Unavailable Veley, Melina COPY CHASER Unavailable Unavailable Veley, Melina COPY CHASER Unavailable Unavailable Veley, Melina COPY CHASER Unavailable Unavailable Veley, Melina COPY CHASER Unavailable Unavailable Veley, Melina COPY CHASER Unavailable Unavailable Veley, Melina COPY CHASER Unavailable Unavailable Veley, Melina COPY CHASER Unavailable Unavailable Veley, Melina COPY CHASER Unavailable Unavailable Veley, Melina COPY CHASER Unavailable Unavailable Veley, Melina COPY CHASER Unavailable Unavailable Veley, Melina COPY CHASER Unavailable Unavailable Veley, Melina COPY CHASER Unavailable Unavailable Veley, Melina COPY CHASER Unavailable Unavailable Veley, Melina COPY CHASER Unavailable Unavailable Veley, Melina COPY CHASER Unavailable Unavailable Veley, Melina COPY CHASER Unavailable Unavailable Veley, Melina COPY CHASER Unavailable Unavailable Veley, Melina COPY CHASER Unavailable Unavailable Veley, Melina COPY CHASER Unavailable Unavailable Veley, Melina COPY CHASER Unavailable Unavailable Veley, Melina COPY CHASER Unavailable Unavailable Veley, Melina COPY CHASER Unavailable Unavailable Veley, Melina COPY CHASER Unavailable Unavailable Veley, Melina COPY CHASER Unavailable Unavailable Veley, Melina COPY CHASER Unavailable Unavailable Veley, Melina COPY CHASER Unavailable Unavailable Veley, Melina COPY CHASER Unavailable Unavailable Veley, Melina COPY CHASER Unavailable Unavailable Nella Ledezma MD Unavailable Unavailable [...] is protected by Article 27-F of the [place] State Public Health law. If you continue you may have access to information: Regarding HIV / AIDS; Provided by facilities licensed or operated by the [facility] Office of Mental Health; or Provided by the [facility] Office for People With Developmental Disabilities. If such information is present, then the following [facility] mandated warning applies: This information has been [...] law may result in a fine or custodial sentence or both. A general authorization for the release of medical or other information is NOT sufficient authorization for further disc losure. Encounters Encounter Providers Location Date Indications Data Source(s ) Unknown [address] [facility] [address] 07/10/2020 12:00:00 AM EDT eCW1 ([facility]) Unknown [address] [facility] [address] 04/04/2020 12:00:00 AM EDT eCW1 ([facility]) Outpatient Attender: Melina NARAYANAN 02/21/2020 07:47:0 2 PM EDT [facility] Outpatient Attender: Melina NARAYANAN 02/11/2020 12:14:3 3 AM EDT [facility] Emergency Attender: Diego Ledezma MD [id number]-[id number] 01/12 12:29:26 PM EDT - 01/25/2020 01:41:00 PM EDT [facility] Patient discharged. Outpatient 01/06/2020 06:03:00 AM EDT [facility] Imaging Outpatient Attender: Melina NARAYANAN 11/04/2019 08:01:1 7 PM EST [facility] Medications Medication Brand Name Start Date Product Form Dose Route Admi nistrative Instructions Pharmacy Instructions Status Indications Reaction Description Data Source(s) Ibuprofen 400 MG Oral Tablet ibuprofen (ADVIL,MOTRIN) tablet 600 mg ibuprofen (ADVIL,MOTRIN) tablet 600 mg 01/25/2020 01:35:00 PM EDT 600 mg Oral completed 600 mg, Oral, Once, Thu01/25/20 at 1335, For 1 dose [facility] Medication administered onsite Cyclobenzaprine hydrochloride 10 MG Oral Tablet cyclobenzaprine (FLEXERIL) tablet 10 mg cyclobenzaprine (FLEXERIL) tablet 10 mg 01/25/2020 01:35:00 PM EDT 10 mg Oral completed 10 mg, Oral, O nce, 01/25/20 at 1335, For 1 dose [facility] Medication administered onsite Cyclobenzaprine hydrochloride 10 MG Oral Tablet cyclobenzaprine (FLEXERIL) 10 MG tablet cyclobenzaprine (FLEXERIL) 10 MG tablet 01/25/2020 12:00:00 AM E DT 10 mg Oral active Take 1 tab let (10 mg total) by mouth 2 (two) times a day as needed for muscle spasms [facility] Ibuprofen 600 MG Oral Tablet ibuprofen (ADVIL,MOTRIN) 600 MG tablet ibuprofen (ADVIL,MOTRIN) 600 MG tablet 01/25/2020 12:00:00 AM EDT 600 mg Oral active Take 1 tablet (600 m g total) by mouth every 6 (six) hours as needed for pain or fever [facility] methylPREDNISolone (MEDROL, SYLVESTER,) 4 MG tablet [id number] 01/25/2020 12:00:00 AM EDT active follow package di rections [facility] 5 % 10/02/2019 12:00:00 AM EST cream [...] type / Coverage type Policy ID Covered alliance party ID Covered alliance party's relationship to [place] Policy [place] Plan Information EMEDNY [id number] SP [id number] MEDICAID M [id number] S [id number] Medicaid P [id number] S [id number] SELF PAY ONLY [id number] SP [id number] 1T MEDICAID [id number] MEDICAID [id number] Sandi [id number] MEDICAID [id number] SP [id number] [place] [employer] 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 [id number] SP [id number] [place] BRE[place] [id number] S [id number] [place] [employer] HUMANIT[employer] 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 [id number] SP [id number] SELF PAY ONLY [id number] SP [id number] [place] [employer] BREEDER DEP [id number] SP [id number] SELF PAY ONLY UNAVAILABLE UNAV AILABLE SELF PAY UNAVAILABLE UNAVAILA BLE MEDICAID [id number] SP [id number] [facility] [id number] SP [id number] MEDICAID [facility] [id number] SP [id number] Problems, Conditions, and Diagnoses Code Display Name Description Problem Type Effective Dates Data Source(s) M94.0 Chondrocostal junction syndrome [Tietze] Chondrocostal junction syndrome (tietze) Diagnosis 01/25/2020 12:29:26 PM EDT [facility] Surgeries/Procedures Procedure Description Date Indications Data Source(s) TROPONIN QUANTITATIVE POCT TROPONIN Routine 01/25/2020 12:45 PM EDT 01/25/2020 04:45:00 PM EDT [facility] ECG ROUTINE ECG W/LEAST 12 LDS TRCG ONLY W/O I&R ECG 12-LEAD STAT 01/25/2020 12:33 PM EDT 01/25/2020 04:33:31 PM EDT [facility] Results ID Date Data Source [id number] 01/25/2020 03:17:28 [facility] Name Date of Age Gend*PT [id number] Manuel Ledezma 2000 19 years M EDPT Location Admission Date/Time Visit ID Attending [id number] 01/25/20 1229 --- --- EPI ID CSN Admitting Provider [id number] ---Attestation signed by Diego Ledezma MD at [...] troponinEKG: January-normal sinus rhythm; Vent Rate 89 IA interval 132 QRS [id number] no STEMI changesTreatments given and/or ordered: flexeril, [...] rce(s) Supporting Document(s) ID Date Data Source [id number] 01/25/2020 12:57:29 PM EDT [facility] Name Value Range Interpretation Code Description Data Marilou rce(s) Supporting Document(s) EKG [facility] QJLEGd6nZtZUXxNdk0YsUkTmBTWnSA7vtlr0R2M6wMHcF9HkmAGgz4qwV6IfA6ElMSHfTCHVAP1SxHVq jb2 [file] rheumatology [file] BgquoL3f/myTXbQq6azwNr1+F3/sWvgdX165Pve/g2NytbMdb+UuPnD2/VvltdzXAvpgqryR48j7K+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 [file] 6PeLOjLvf/+l8/dbm/pUFU5D03j+ofj7ZYBFBX7Ls0Zg0S/tLJav2z1O6CckBgVyOps37zCq53pe+Maria Elena [file] IGYgCjAwMDAwMDAwMTYgMDAwMDAgbiAKMDAwMDAwMD C4DMAxEHPjINXdMFsrYPTeHMNaMNnuWTThGFIxXM1dKcNjGHNaBTHgXTisZBTiREKwxgTAZDCtHMHzJE DyMVKiPFXyMULpSMadSBOuUGYuSSEfODWxHYKcYU6jNsDbFZAsUDK3SPXvFXHaZNBgjoPHTLAiCMGnIU y1NHNlTBXyNAKmKDywPAKrWZMwWAO8YTClJQBiFS8n CfEkWIVeKQV8EoLeSUGgDUVdvgFPRWWoKCLqNZH8NlTmBSDaITCsPLwhSTOvLYZwUAmjJBXgDGFpHL0h LeAoHZWjLYWmKZwfUHCeKOQvcdPZWWAeWNAeMRCiBvDvTCXgTHQjEBgwDWBbUEA2FObcGNPtUBJnPD0j PgGsZELhXKH9LDmlKKUhUIGiglPGPTZaUUCnCEefCU UmPIRdJMBqHFhdZNTbSPGlKMT6GTPoGQYuSP4eAtAeNEVvHMXlXBAhDvW6XkOtEzLWbSFukAqtutl2GO zgT0i6OFOqFPisRZ8fopQfWEFhLpqxDw1liIA1UBEhLjmHHx3Di5UyuaQ5fmPaEnU5XkS2AhCfHL3V ID Date Data Source [id number] 01/25/2020 12:58:02 PM EDT [facility] Name Value Range Interpretation Code Description Data Marilou rce(s) Supporting Document(s) POC CTNI <0.01 ng/mL (0.01-0.07) L [facility] Less than 0.08: Myocardial injury unlike lyGreater than or equal to 0.08: Highlysuggestive of myocardial injuryCorrelation with rise and/or fall ofserial troponins, clinical symptoms,and ECG changes is necessary.PERFORMED BY [facility] CLINICAL STAFF Procedure Social History Code Duration Value Status Description Data Source(s ) Smoking 02/13/2020 12:00:00 AM EDT Current Smoker completed Curre nt Smoker eCW1 ([facility]) Smoking 02/13/2020 12:00:00 AM EDT Current Smoker completed Curre nt Smoker eCW1 ([facility]) Alcohol intake 01/25/2020 12:00:00 AM EDT Yes completed [facility] Cigarette pack-years 01/25/2020 12:00:00 AM EDT UNK completed [facility] Cigarettes smoked current (pack per day) - Reported 01/25/20 12:00:00 AM EDT UNK completed [facility] Smoking 01/25/2020 12:00:00 AM EDT Current every day smoker co mpleted Current every day smoker [facility] Vital Signs ID Date Data Source UNK Name Value Range Interpretation Code Description Data Source(s) Oxygen saturation in Arterial blood by Pulse oximetry 99 % 99 % [facility] Body mass index (BMI) [Ratio] 27.32 kg/m2 27.32 kg/m2 [facility] Body weight 83.915 kg 83.915 kg [facility] Body height 175.3 cm 175.3 cm [facility] Respiratory rate 18 /min 18 /min [facility] Body temperature 36.78 Belen 36.78 Belen [facility] Heart rate 97 /min 97 /min [facility] Diastolic blood pressure 90 mm[Hg] 90 mm[Hg] [facility] Systolic blood pressure 135 mm[Hg] 135 mm[Hg] [facility] Patient Treatment Plan of Care Planned Activity Planned Date Details Description Data Source (s) Ibuprofen 600 MG Oral Tablet 01/25/2020 12:00:00 AM EDT [facility] methylPREDNISolone (MEDROL, SYLVESTER,) 4 MG tablet 01/25/2020 12:00:00 A M EDT [facility] Cyclobenzaprine hydrochloride 10 MG Oral Tablet 01/25/2020 12:00:00 AM EDT [facility]
== END 2020-10-30 01:58 | disposition home or self-care (01) ==
LOC: M ED 22:33
DX: M79.673 Pain in unspecified foot (principal); X31.XXXA Exposure to excessive natural cold, initial encounter; Y92.099 Unspecified place in other non-institutional residence as the place of occurrence of the external cause; Y93.9 Activity, unspecified; Y99.9 Unspecified external cause status; F17.200 Nicotine dependence, unspecified, uncomplicated

== ENCOUNTER 2020-12-04 22:46 | Emergency (ER) | payer MEDICAID ==
[~2020-12-04] VITALS: Ht 172.7 cm; Wt 83.3 kg
[2020-12-05 02:59] VITALS: BP 118/56
--- NOTE | 2020-12-05 08:04 | ECGEPIP ---
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
== END 2020-12-05 03:00 | disposition home or self-care (01) ==
LOC: M ED 22:46
DX: R07.89 Other chest pain (principal); I45.10 Unspecified right bundle-branch block; F17.200 Nicotine dependence, unspecified, uncomplicated

== ENCOUNTER 2021-06-19 22:41 | Emergency (ER) | payer OTHER, SELFPAY ==
[~2021-06-19] VITALS: Ht 172.7 cm; Wt 78.1 kg
[2021-06-20] MEDS ORDERED: IBUPROFEN 800 MG TAB PO ONE (07:35)
--- NOTE | 2021-06-20 07:41 | REPVR ---
PROCEDURE INFORMATION: Exam: XR Right Foot Exam date and time: 06/20/2021 6:36 AM Age: 21 years old Clinical indication: Other: Basketball injury; Additional info: Injury 2 months ago feels it is broken TECHNIQUE: Imaging protocol: XR Right foot. Views: 3 or more views. COMPARISON: CR FOOT PARTIAL (AP/LAT) RIGHT 01/08/2017 2:44 PM FINDINGS: Bones/joints: Normal. Soft tissues: Normal. IMPRESSION: No acute findings. Electronically signed by: Agusto Villa On 06/20/2021 07:41:26 AM
[2021-06-20] MEDS ORDERED: IBUP80TA PO (07:57)
[2021-06-20 08:32] VITALS: BP 124/60
== END 2021-06-20 08:40 | disposition home or self-care (01) ==
LOC: M ED 22:41
DX: M79.671 Pain in right foot (principal); X50.0XXA Overexertion from strenuous movement or load, initial encounter; Y92.147 Courtyard of prison as the place of occurrence of the external cause; Y93.67 Activity, basketball; Y99.9 Unspecified external cause status; L72.3 Sebaceous cyst; F17.200 Nicotine dependence, unspecified, uncomplicated

== ENCOUNTER 2021-07-02 00:45 | Emergency (ER) | payer MEDICAID, SELFPAY ==
[~2021-07-02] VITALS: Ht 172.7 cm; Wt 78.0 kg
[~2021-07-02 00:45] MED LIST changes: +IBUP80TA PO
--- OUTSIDE RECORDS SUMMARY | 2021-07-02 00:49 | CCD ---
Author Author [facility] Organization [facility] Address Unknown Phone Unavailable Support Name Relationship Address Phone MILAD JACKSON Next Of Kin [address] [place] [address] MEEK HEARD Next Of Kin [address] [place] [address] Melina Carter Next Of Kin [address] [place] [id number] MARGO REYNA Next Of Kin [address] [place] [address] MASOOD SOTO Next Of Kin [address] [place] [address] Lukasz LEDEZMA Next Of Kin [address] [place] [address] [place] Next Of Kin [address] [place] [address] UE Next Of Kin Unknown Unavailable ST Next Of Kin Unknown Unavailable EV ALEXANDER Next Of Kin [address] [place] [address] EV LEDEZMA Next Of Kin [address] [place] [address] UN Next Of Kin Unknown Unavailable CARRIE DIANE Next Of Kin [address] [address] YOLANDA LEDEZMA Next Of Kin [address] [place] [address] Unavailable BEBA HEARD ECON [address] [place] [address] Unavailable Re-disclosure Warning The records that you [...] is protected by Article 27-F of the [facility] Public Health law. If you continue you may have access to information: Regarding HIV / AIDS; Provided by facilities licensed or operated by the [facility] Office of Mental Health; or Provided by the [facility] Office for People With Developmental Disabilities. If such information is present, then the following [facility] mandated warning applies: This information [...] law may result in a fine or shelter sentence or both. A general authorization for the release of medical or other information is NOT sufficient authorization for further disc losure. Encounters Encounter Providers Location Date Indications Data Source(s ) Unknown [address] [facility] [place] [address] 12/05/2020 12:00:00 AM EDT eCW1 ([facility]) Unknown [address] [facility] [place] [address] 07/10/2020 12:00:00 AM EDT eCW1 ([facility]) Medications No Information Insurance Providers Payer name Policy type / Coverage type Policy ID Covered democrat ID Covered democrat's relationship to villegas Policy Villegas Plan Information MEDICAID [facility] [id number] SP [id number] [facility] [id number] SP [id number] MEDICAID [id number] xxxxxxxx [id number] MEDICAID [id number] Sandi [id number] SELF PAY ONLY [id number] SP [id number] MEDICAID [id number] SP [id number] [facility] 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 [id number] SP [id number] [facility] VP OF CUSTOMER EXPERIENCE STRATEGY DE O [id number] S [id number] [facility] 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 [id number] SP [id number] [facility] VP OF CUSTOMER EXPERIENCE STRATEGY DEP [id number] SP [id number] SELF PAY ONLY UNAVAILABLE UNAV AILABLE SELF PAY UNAVAILABLE UNAVAILA BLE MEDICAID [id number] SP [id number] [facility] [id number] SP [id number] SELF PAY ONLY [id number] SP [id number] [place] [id number] SP [id number] MEDICAID M [id number] S [id number] Medicaid P [id number] S [id number] Problems, Conditions, and Diagnoses No Information Surgeries/Procedures No Information Results No Information Social History No Information
[2021-07-02 01:24] LABS: HEMATOCRIT 52.4 % (42.0-52.0); HEMOGLOBIN 17.3 g/dl (13.5-17.5); MEAN CORPUSCULAR HEMOGLOBIN 30.5 pg (27.0-33.0); MEAN CORPUSCULAR VOLUME 92.3 fl (80.0-96.0); PLATELET COUNT, AUTOMATED 241 10^3/uL (150-450); RED BLOOD COUNT 5.68 10^6/uL (4.30-6.10); WHITE BLOOD COUNT 9.9 10^3/uL (4.0-10.0)
[2021-07-02 01:55] LABS: ACETAMINOPHEN LEVEL < 2.0 UG/ML (10.0-30.0); ALBUMIN 4.6 GM/DL (3.2-5.2); ALT/SGPT 26 U/L (12-78); AMPHETAMINES LEVEL URINE NEGATIVE (NEGATIVE); BARBITURATES URINE NEGATIVE (NEGATIVE); BENZODIAZEPINES URINE NEGATIVE (NEGATIVE); BILIRUBIN,DIRECT < 0.1 MG/DL (0.0-0.2); BILIRUBIN,TOTAL 0.2 MG/DL (0.2-1.0); BLOOD UREA NITROGEN 9 MG/DL (7-18); CALCIUM LEVEL 9.4 MG/DL (8.5-10.1); CANNABINOIDS URINE POSITIVE (NEGATIVE); CARBON DIOXIDE LEVEL 30 MEQ/L (21-32); CHLORIDE LEVEL 108 MEQ/L (98-107); COCAINE METABOLITE URINE NEGATIVE (NEGATIVE); CREATININE FOR GFR 1.16 MG/DL (0.70-1.30); ETHYL ALCOHOL (ETHANOL) 0.227 % (0.000-0.010); GLOMERULAR FILTRATION RATE > 60.0 (>60); GLUCOSE, FASTING 97 MG/DL (70-100); METHADONE URINE NEGATIVE (NEGATIVE); OPIATES URINE NEGATIVE (NEGATIVE); PHENCYCLIDINE URINE NEGATIVE (NEGATIVE); POTASSIUM SERUM 5.1 MEQ/L (3.5-5.1); SALICYLATE LEVEL 4.4 MG/DL (5.0-30.0); SODIUM LEVEL 143 MEQ/L (136-145); TOTAL PROTEIN 8.5 GM/DL (6.4-8.2)
--- OUTSIDE RECORDS SUMMARY | 2021-07-02 06:34 | CCD ---
Author Author [facility] Organization [facility] Address Unknown Phone Unavailable Support Name Relationship Address Phone MILAD JACKSON Next Of Kin [address] [place] [address] MEEK HEARD Next Of Kin [address] [place] [address] Melina Carter Next Of Kin [address] [place] [id number] MARGO REYNA Next Of Kin [address] [place] [address] MASOOD SOTO Next Of Kin [address] [place] [address] Lukasz LEDEZMA Next Of Kin [address] [place] [address] [employer] Next Of Kin [address] [place] [address] UE Next Of Kin Unknown Unavailable ST Next Of Kin Unknown Unavailable EV ALEXANDER Next Of Kin [address] [place] [address] EV LEDEZMA Next Of Kin [address] [place] [address] UN Next Of Kin Unknown Unavailable CARRIE DIANE Next Of Kin [address] [address] YOLANDA LEDEZMA Next Of Kin [address] [place] [address] Unavailable BEBA HEARD ECON [address] [place] [address] Unavailable Re-disclosure Warning The records that you [...] is protected by Article 27-F of the [facility] Public Health law. If you continue you may have access to information: Regarding HIV / AIDS; Provided by facilities licensed or operated by the [facility] Office of Mental Health; or Provided by the [facility] Office for People With Developmental Disabilities. If such information is present, then the following [facility] mandated warning applies: This information has [...] law may result in a fine or long-term sentence or both. A general authorization for the release of medical or other information is NOT sufficient authorization for further disc losure. Encounters Encounter Providers Location Date Indications Data Source(s ) Unknown [address] [facility] [place] [address] 12/05/2020 12:00:00 AM EDT eCW1 ([facility]) Unknown [address] [facility] Y [address] 07/10/2020 12:00:00 AM EDT eCW1 ([facility]) Medications No Information Insurance Providers Payer name Policy type / Coverage type Policy ID Covered democrat ID Covered democrat's relationship to villegas Policy Villegas Plan Information MEDICAID [facility] [id number] SP [id number] [facility] [id number] SP [id number] MEDICAID [id number] xxxxxxxx [id number] MEDICAID [id number] Sandi [id number] SELF PAY ONLY [id number] SP [id number] MEDICAID [id number] SP [id number] [facility] 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 [id number] SP [id number] [facility] 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 O [id number] S [id number] [facility] 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
[2021-07-02 06:40] VITALS: BP 130/60
== END 2021-07-02 09:10 | disposition home or self-care (01) ==
LOC: M ED 00:45
DX: F10.129 Alcohol abuse with intoxication, unspecified (principal)

== ENCOUNTER 2021-07-30 18:23 | Emergency (ER) | payer OTHER ==
[~2021-07-30] VITALS: Ht 172.7 cm; Wt 81.5 kg
--- OUTSIDE RECORDS SUMMARY | 2021-07-30 18:29 | CCD ---
Author Author [facility] Organization [facility] Address Unknown Phone Unavailable Support Name Relationship Address Phone MILAD JACKSON Next Of Kin [address] [place] [address] MEEK HEARD Next Of Kin [address] [place] [address] Melina Carter Next Of Kin [address] [place] [id number] MARGO REYNA Next Of Kin [address] [place] [address] MASOOD SOTO Next Of Kin [address] [place] [address] Lukasz LEDEZMA Next Of Kin [address] [place] [address] [employer] Next Of Kin [address] [place] [address] UE Next Of Kin Unknown Unavailable ST Next Of Kin Unknown Unavailable EV ALEXANDER Next Of Kin [address] [place] [address] EV LEDEZMA Next Of Kin [address] [place] [address] UN Next Of Kin Unknown Unavailable CARRIE DIANE Next Of Kin [address] [address] YOLANDA LEDEZMA Next Of Kin [address] [place] [address] Unavailable BEBA HEARD ECON [address] [place] [address] Unavailable Re-disclosure Warning The records that you [...] is protected by Article 27-F of the [facility] Public Health law. If you continue you may have access to information: Regarding HIV / AIDS; Provided by facilities licensed or operated by the [facility] Office of Mental Health; or Provided by the [facility] Office for People With Developmental Disabilities. If such information is present, then the following [facility] mandated warning applies: This information has [...] law may result in a fine or senior living sentence or both. A general authorization for the release of medical or other information is NOT sufficient authorization for further disc losure. Encounters Encounter Providers Location Date Indications Data Source(s ) Unknown [address] [facility] [address] [address] 12/05/2020 12:00:00 AM EDT eCW1 ([facility]) Unknown [address] [facility] [address] [address] 07/10/2020 12:00:00 AM EDT eCW1 ([facility]) Medications No Information Insurance Providers Payer name Policy type / Coverage type Policy ID Covered green party ID Covered green party's relationship to villegas Policy Villegas Plan Information MEDICAID [facility] [id number] SP [id number] [facility] [id number] SP [id number] [facility] [id number] SP [id number] MEDICAID [id number] xxxxxxxx [id number] MEDICAID [id number] Sandi [id number] Medicaid P [id number] S [id number] SELF PAY ONLY [id number] SP [id number] MEDICAID [id number] SP [id number] [place] [employer] 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 [id number] SP [id number] [place] GENERAL FOREMAN DE O [id number] S [id number] [place] [employer]TE[employer] SPECIALIST DEPT [id number] SP [id number] [place] [employer] DEP [id number] SP [id number] SELF PAY ONLY UNAVAILABLE UNAV AILABLE SELF PAY UNAVAILABLE UNAVAILA BLE MEDICAID [id number] SP [id number] [facility] [id number] SP [id number] [employer] MCDHMO [id number] SP [id number] [place] [id number] SP [id number] SELF PAY ONLY [id number] SP [id number] EMED[place] [id number] SP [id number] MEDICAID M [id number] S [id number] Problems, Conditions, and Diagnoses No Information Surgeries/Procedures No Information Results No Information Social History No Information Vital Signs ID Date Data Source UNK Name Value Range Interpretation Code Description Data Source(s) Body weight 171.00 [lb_av] 171.00 [lb_av] MEDEN T ([facility]) Systolic blood pressure 118 mm[Hg] 118 mm[Hg] M EDENT ([facility]) Diastolic blood pressure 69 mm[Hg] 69 mm[Hg] MEDENT ([facility]) Heart rate 53 /min 53 /min MEDENT ([facility]) Respiratory rate 20 /min 20 /min [facility] ( [facility]) Body temperature 98.3 [degF] 98.3 [degF] MEDENT ([facility])
--- OUTSIDE RECORDS SUMMARY | 2021-07-30 18:29 | CCD | Continuity of Care Document ---
Author Author Manuel AVILA M.D. Organization Unknown Address [address] [place] [address] Phone [phone] Care Team Providers Care Deputy Chief Executive Name Role Phone Jax Avila M.D. AUTM Unavailable Collette Simmons M.D. AUTM [phone] Problems Active Problems Provider Date Bipolar disorder Collette Simmons M.D. Onset: 2016 Social History Type Date Description Comments Sex Unknown Allergies and adverse reactions Description No Known Drug Allergies Medications Description No Active Medications Immunizations Description No Information Available Vital Signs Date Vital Result Comment 06/07/2019 8:57am BP Systolic 119 mmHg BP Diastolic 74 mmHg Heart Rate 69 /min Respiratory Rate 18 /min Body Temperature 97.9 F Weight 171.00 lb 06/06/2019 9:49am BP Systolic 114 mmHg BP Diastolic 62 mmHg Heart Rate 66 /min Respiratory Rate 18 /min Body Temperature 97.8 F Weight 171.00 lb Results Description No Information Available Procedures Description No Information Available Medical Devices Description No Information Available Encounters Description No Information Available Assessments Description No Information Available Plan of Treatment No Information Available Functional Status Description No Information Available Mental Status Description No Information Available Referrals Description No Information Available
--- OUTSIDE RECORDS SUMMARY | 2021-07-30 18:29 | CCD | Continuity of Care Document ---
Author Author Nurse 2Manuel Organization Unknown Address [address] [place] [address] Phone Unavailable Care Team Providers Care Talent Director Name Role Phone Jax Avila M.D. AUTM Unavailable Collette Simmons M.D. AUTM [phone] Problems Active Problems Provider Date Bipolar disorder Collette Simmons M.D. Onset: 2016 Social History Type Date Description Comments Sex Unknown Allergies and adverse reactions Description No Known Drug Allergies Medications Description No Active Medications Immunizations Description No Information Available Vital Signs Date Vital Result Comment 07/05/2021 8:22am BP Systolic 118 mmHg BP Diastolic 69 mmHg Heart Rate 53 /min Respiratory Rate 20 /min Body Temperature 98.3 F Weight 171.00 lb 06/07/2019 8:57am BP Systolic 119 mmHg BP Diastolic 74 mmHg Heart Rate 69 /min Respiratory Rate 18 /min Body Temperature 97.9 F Weight 171.00 lb Results Description No Information Available Procedures Description No Information Available Medical Devices Description No Information Available Encounters Description No Information Available Assessments Description No Information Available Plan of Treatment No Information Available Functional Status Description No Information Available Mental Status Description No Information Available Referrals Description No Information Available
--- OUTSIDE RECORDS SUMMARY | 2021-07-30 18:29 | CCD ---
Continuity of Care Document (CCD) Created on: 07/07/2021 Camilo Manuel Vibha External Reference #: [id number] : 2000 Sex: Male Author Author Nurse 2Manuel Organization Unknown Address [address] [place] [address] Phone Unavailable Care Team Providers Care Document Control Specialist Name Role Phone Jax Avila M.D. AUTM Unavailable Collette Simmons M.D. AUTM Problems Active Problems Provider Date Bipolar disorder [...]
--- OUTSIDE RECORDS SUMMARY | 2021-07-30 19:46 | CCD ---
Author Author [facility] Organization [facility] Address Unknown Phone Unavailable Support Name Relationship Address Phone MILAD JACKSON Next Of Kin [address] [place] [address] MEEK HEARD Next Of Kin [address] [place] [address] Melina Carter Next Of Kin [address] [place] [id number] MARGO REYNA Next Of Kin [address] [place] [address] MASOOD SOTO Next Of Kin [address] [place] [address] Lukasz LDEEZMA Next Of Kin [address] [place] [address] [employer] Next Of Kin [address] [place] [address] UE Next Of Kin Unknown Unavailable ST Next Of Kin Unknown Unavailable EV ALEXANDER Next Of Kin [address] [place] [address] EV LEDEZMA Next Of Kin [address] [place] [address] UN Next Of Kin Unknown Unavailable CARRIE DIANE Next Of Kin [address] [address] YOLANDA LEDEZMA Next Of Kin [address] [place] [address] Unavailable BEBA HEARD ECON [address] [place] [address] Unavailable Re-disclosure Warning The records that you [...] is protected by Article 27-F of the [facility] Public Health law. If you continue you may have access to information: Regarding HIV / AIDS; Provided by facilities licensed or operated by the [facility] Office of Mental Health; or Provided by the [facility] Office for People With Developmental Disabilities. If such information is present, then the following [facility] mandated warning applies: This information has [...] law may result in a fine or assisted sentence or both. A general authorization for the release of medical or other information is NOT sufficient authorization for further disc losure. Encounters Encounter Providers Location Date Indications Data Source(s ) Unknown [address] [facility] [id number] 12/05/2020 12:00:00 AM EDT eCW1 ([facility]) Unknown [address] [facility] [place] [address] 07/10/2020 12:00:00 AM EDT eCW1 ([facility]) Medications No Information Insurance Providers Payer name Policy type / Coverage type Policy ID Covered republican ID Covered republican's relationship to villegas Policy Villegas Plan Information MEDICAID [facility] [id number] SP [id number] [facility] COMMUNITY PLAN [facility] [id number] SP [id number] [facility] [id number] SP [id number] MEDICAID [id number] xxxxxxxx [id number] MEDICAID [id number] Sandi [id number] Medicaid P [id number] SELF PAY ONLY [id number] SP [id number] MEDICAID [id number] SP [id number] [place] 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 [id number] SP [id number] [place]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 [id number] S [id number] [place] 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 [id number] SP [id number] [place] MUSIC DIRECTOR DEP [id number] SP [id number] SELF PAY ONLY UNAVAILABLE UNAV AILABLE SELF PAY UNAVAILABLE UNAVAILA BLE MEDICAID [id number] SP [id number] [facility] [id number] SP [id number] UNHC COMMUNITY PLAN MCDHMO [id number] SP [id number] [place] [id number] SP [id number] SELF PAY ONLY [id number] SP [id number] [place] [id number] SP [id number] MEDICAID M [id number] S [id number] Problems, Conditions, and Diagnoses No Information Surgeries/Procedures No Information Results No Information Social History No Information Vital Signs ID Date Data Source UNK Name Value Range Interpretation Code Description Data Source(s) Body weight 171.00 [lb_av] 171.00 [lb_av] MEDEN T ([facility]) Systolic blood pressure 118 mm[Hg] 118 mm[Hg] M EDENT ([facility]) Diastolic blood pressure 69 mm[Hg] 69 mm[Hg] MEDENT ([facility]) Heart rate 53 /min 53 /min MEDENT ([facility]) Respiratory rate 20 /min 20 /min [facility] ( [facility]) Body temperature 98.3 [degF] 98.3 [degF] MEDENT ([facility])
[2021-07-30 20:45] LABS: BASO # 0.1 10^3/uL (0.0-0.2); BASO % 0.6 % (0.0-1.0); EOS # 0.3 10^3/uL (0.0-0.5); EOS % 2.3 % (0.0-3.0); HEMOGLOBIN 14.8 g/dl (13.5-17.5); LYMPH # 1.3 10^3/uL (1.5-5.0); LYMPH % 11.8 % (24.0-44.0); MEAN CORPUSCULAR HEMOGLOBIN 30.3 pg (27.0-33.0); MEAN CORPUSCULAR HGB CONC 33.6 g/dl (32.0-36.5); MEAN CORPUSCULAR VOLUME 90.2 fl (80.0-96.0); MONO # 0.7 10^3/uL (0.0-0.8); MONO % 6.8 % (2.0-8.0); NEUTROPHILS # 8.4 10^3/uL (1.5-8.5); NEUTROPHILS % 78.2 % (36.0-66.0); PLATELET COUNT, AUTOMATED 195 10^3/uL (150-450); RED BLOOD COUNT 4.88 10^6/uL (4.30-6.10); WHITE BLOOD COUNT 10.8 10^3/uL (4.0-10.0)
[2021-07-30 21:11] LABS: MAGNESIUM LEVEL 2.3 MG/DL (1.8-2.4)
[2021-07-30 21:56] LABS: BLOOD UREA NITROGEN 10 MG/DL (7-18); CALCIUM LEVEL 10.1 MG/DL (8.5-10.1); CARBON DIOXIDE LEVEL 30 MEQ/L (21-32); CHLORIDE LEVEL 103 MEQ/L (98-107); CREATININE FOR GFR 0.95 MG/DL (0.70-1.30); GLOMERULAR FILTRATION RATE > 60.0 (>60); GLUCOSE, FASTING 92 MG/DL (70-100); POTASSIUM SERUM 4.1 MEQ/L (3.5-5.1); SODIUM LEVEL 139 MEQ/L (136-145)
[2021-07-30 22:32] VITALS: BP 145/63
[2021-07-31] MEDS ORDERED: MIRA3350 PO (10:39)
== END 2021-07-30 22:34 | disposition home or self-care (01) ==
LOC: M ED 18:23
DX: R11.0 Nausea (principal); F17.200 Nicotine dependence, unspecified, uncomplicated; Z77.011 Contact with and (suspected) exposure to lead

== ENCOUNTER 2021-07-31 04:49 | Emergency (ER) | payer MEDICAID, OTHER ==
--- OUTSIDE RECORDS SUMMARY | 2021-07-31 04:54 | CCD ---
Author Author [facility] Organization [facility] Address Unknown Phone Unavailable Support Name Relationship Address Phone MILAD JACKSON Next Of Kin [address] [place] [address] MEEK HEARD Next Of Kin [address] [place] [address] Melina Carter Next Of Kin [address] [place], [place] [id number] MAGRO REYNA Next Of Kin [address] [place] [address] MASOOD SOTO Next Of Kin [address] [place] [address] Lukasz LEDEZMA Next Of Kin [address] [place] [address] [employer] Next Of Kin [address] [place] [address] UE Next Of Kin Unknown Unavailable ST Next Of Kin Unknown Unavailable EV ALEXANDER Next Of Kin [address] [place] [address] EV LEDEZMA Next Of Kin [address] [place] [address] UN Next Of Kin Unknown Unavailable CARRIE DIANE Next Of Kin [address] [address] YOLANDA LEDEZMA Next Of Kin [address] [place] [address] Unavailable BEBA HEARD ECON [address] [place] [address] Unavailable Re-disclosure Warning The records that you [...] is protected by Article 27-F of the [facility] Public Health law. If you continue you may have access to information: Regarding HIV / AIDS; Provided by facilities licensed or operated by the [facility] Office of Mental Health; or Provided by the [facility] Office for People With Developmental Disabilities. If such information is present, then the following [facility] mandated warning applies: This information has been [...] law may result in a fine or intermediate sentence or both. A general authorization for the release of medical or other information is NOT sufficient authorization for further disc losure. Encounters Encounter Providers Location Date Indications Data Source(s ) Unknown [address] [facility] Y [id number] 12/05/2020 12:00:00 AM EDT eCW1 ([facility]) Unknown [address] [facility] [address] 07/10/2020 12:00:00 AM EDT eCW1 ([facility]) Medications No Information Insurance Providers Payer name Policy type / Coverage type Policy ID Covered green party ID Covered green party's relationship to villegas Policy Villegas Plan Information MEDICAID [facility] [id number] SP [id number] [facility] COMMUNITY PLAN [facility] [id number] SP [id number] [facility] [id number] SP [id number] MEDICAID [id number] xxxxxxxx [id number] MEDICAID [id number] Sandi [id number] Medicaid P [id number] S [id number] SELF PAY ONLY [id number] SP [id number] MEDICAID [id number] SP [id number] [place] [facility] 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 [id number] SP [id number] [place] 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 [place] [id number] S [id number] [place] 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 [id number] SP [id number] [place] [employer] 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 DEP [id number] SP [id number] SELF PAY ONLY UNAVAILABLE UNAV AILABLE SELF PAY UNAVAILABLE UNAVAILA BLE MEDICAID [id number] SP [id number] [facility] [id number] SP [id number] UNHC COMMUNITY PLAN MCDHMO [id number] SP [id number] [place] [id number] SP [id number] SELF PAY ONLY [id number] SP [id number] [place] [id number] SP [id number] MEDICAID M [id number] S [id number] Problems, Conditions, and Diagnoses No Information Surgeries/Procedures No Information Results No Information Social History No Information Vital Signs ID Date Data Source UNK Name Value Range Interpretation Code Description Data Source(s) Systolic blood pressure 118 mm[Hg] 118 mm[Hg] M EDENT ([facility]) Body weight 171.00 [lb_av] 171.00 [lb_av] MEDEN T ([facility]) Diastolic blood pressure 69 mm[Hg] 69 mm[Hg] MEDENT ([facility]) Heart rate 53 /min 53 /min MEDENT ([facility]) Respiratory rate 20 /min 20 /min [facility] ( [facility]) Body temperature 98.3 [degF] 98.3 [degF] MEDENT ([facility])
[2021-07-31] MEDS ORDERED: PANTOPRAZOLE 40MG VIAL (C9113 PER 1) IV ONE (07:40)
[2021-07-31] MEDS ORDERED: KETOROLAC 30 MG/ML 1ML VIAL IV ONE (07:40)
[2021-07-31] MEDS ORDERED: ONDANSETRON 4MG/2ML VIAL IV ONE (07:40)
[2021-07-31] MEDS ORDERED: NS 1,000 ML IV ONE (07:40)
--- NOTE | 2021-07-31 08:11 | REP ---
INDICATION: abdominal pain COMPARISON: None. TECHNIQUE: Supine view of the abdomen and pelvis. FINDINGS: Bowel gas pattern is nonspecific and without obstruction or perforation. No organomegaly. No abnormal calcifications. Skeletal structures intact. IMPRESSION: Normal abdominal radiograph. Nonspecific bowel gas pattern. <Electronically signed by Travis Royal > 07/31/21 0825
[2021-07-31 08:22] LABS: ALBUMIN 3.9 GM/DL (3.2-5.2); BILIRUBIN,DIRECT 0.2 MG/DL (0.0-0.2); BILIRUBIN,TOTAL 0.5 MG/DL (0.2-1.0); TOTAL PROTEIN 7.4 GM/DL (6.4-8.2)
--- OUTSIDE RECORDS SUMMARY | 2021-07-31 08:23 | CCD ---
Author Author [facility] Organization [facility] Address Unknown Phone Unavailable Support Name Relationship Address Phone MILAD JACKSON Next Of Kin [address] [place] [address] MEEK HEARD Next Of Kin [address] [place] [address] Melina Carter Next Of Kin [address] [place], [place] [id number] MARGO REYNA Next Of Kin [address] [place] [address] MASOOD SOTO Next Of Kin [address] [place] [address] Lukasz LEDEZMA Next Of Kin [address] [place] [address] [employer] Next Of Kin [address] [place] [address] UE Next Of Kin Unknown Unavailable ST Next Of Kin Unknown Unavailable EV ALEXANDER Next Of Kin [address] [place] [address] EV LEDEZMA Next Of Kin [address] [place] [address] UN Next Of Kin Unknown Unavailable CARRIE DIANE Next Of Kin [address] [address] YOLANDA LEDEZMA Next Of Kin [address] [place] [address] Unavailable BEBA HEARD ECON [address] [place] [address] Unavailable Re-disclosure Warning The records that you [...] is protected by Article 27-F of the [facility] Public Health law. If you continue you may have access to information: Regarding HIV / AIDS; Provided by facilities licensed or operated by the [facility] Office of Mental Health; or Provided by the [facility] Office for People With Developmental Disabilities. If such information is present, then the following [facility] mandated warning applies: This information has [...] Date Indications Data Source(s ) Unknown [address] [facility] [address] 12/05/2020 12:00:00 AM EDT eCW1 ([facility]) Unknown [address] [facility] [place] [address] 07/10/2020 12:00:00 AM EDT eCW1 ([facility]) Medications No Information Insurance Providers Payer name Policy type / Coverage type Policy ID Covered alliance party ID Covered alliance party's relationship to villegas Policy Villegas Plan Information MEDICAID [facility] [id number] SP [id number] [facility] COMMUNITY PLAN [facility] [id number] SP [id number] [facility] COMMUNITY PLAN [facility] [id number] SP [id number] MEDICAID [id number] xxxxxxxx [id number] MEDICAID [id number] Sandi [id number] Medicaid P [id number] S [id number] SELF PAY ONLY [id number] SP [id number] MEDICAID [id number] SP [id number] [place] 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 [id number] SP [id number] [place] 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 MANAGER [place] [id number] S [id number] [place] 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 [id number] SP [id number] [place] ANALYTIC MANAGER DEP [id number] SP [id number] SELF PAY ONLY UNAVAILABLE UNAV AILABLE SELF PAY UNAVAILABLE UNAVAILA BLE MEDICAID [id number] SP [id number] [facility] [id number] SP [id number] UNHC COMMUNITY PLAN MCDHMO [id number] SP [id number] [place] [id number] SP [id number] SELF PAY ONLY [id number] SP [id number] [place] [id number] SP [id number] MEDICAID M [id number] S [id number] Problems, Conditions, and Diagnoses No Information Surgeries/Procedures No Information Results No Information Social History No Information Vital Signs ID Date Data Source UNK Name Value Range Interpretation Code Description Data Source(s) Body weight 171.00 [lb_av] 171.00 [lb_av] MEDEN T ([facility]) Systolic blood pressure 118 mm[Hg] 118 mm[Hg] M EDENT ([facility]) Diastolic blood pressure 69 mm[Hg] 69 mm[Hg] MEDENT ([facility]) Heart rate 53 /min 53 /min MEDENT ([facility]) Respiratory rate 20 /min 20 /min [facility] ( [facility]) Body temperature 98.3 [degF] 98.3 [degF] MEDENT ([facility])
[2021-07-31 08:46] LABS: CK-MB VALUE MASS 4.5 NG/ML (<3.6); CPK CREATINE PHOSPHOKINASE 549 U/L (39-308); MB/CK RELATIVE INDEX 0.82 (< OR =4); TROPONIN I < 0.02 NG/ML (< 0.10)
[2021-07-31] MEDS ORDERED: ISOVUE-370 76% 100ML VIAL As Ordered ONE (08:46)
--- NOTE | 2021-07-31 10:19 | REP ---
INDICATION: abdominal pain LLQ, LUQ, epigastric. COMPARISON: None TECHNIQUE: Axial contrast-enhanced images from the lung bases to the pubic symphysis using 100 cc Isovue 370 intravenous contrast material. Coronal and sagittal reformations obtained. This CT examination was performed using the following dose reduction techniques: Automated exposure control, adjustment of mA and/or kv according to the patient's size, and the use of iterative reconstruction technique. FINDINGS: Liver, spleen, pancreas, gallbladder, bilateral adrenal glands and kidneys are normal. The enteric system is without obstruction or acute inflammatory process. Fecal stasis and constipation cannot be excluded. Normal terminal ileum and appendix are identified in the right lower quadrant. Pelvis demonstrates normal bladder and age-appropriate prostate/seminal vesicles. No ascites. No free air. No intraperitoneal or retroperitoneal adenopathy. Abdominal aorta and vasculature appear normal. Musculoskeletal structures are intact and without acute osseous abnormality. IMPRESSION: Moderate fecal stasis. No further acute abdominopelvic pathology appreciated. <Electronically signed by Travis Royal > 07/31/21 0247
[2021-07-31] MEDS ORDERED: MIRA3350 PO (10:39)
[2021-07-31 10:50] VITALS: BP 123/67
--- NOTE | 2021-08-03 07:27 | ECGEPIP ---
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
== END 2021-07-31 10:54 | disposition home or self-care (01) ==
LOC: M ED 04:49
DX: E86.0 Dehydration (principal); K59.00 Constipation, unspecified; R74.8 Abnormal levels of other serum enzymes; R11.2 Nausea with vomiting, unspecified; R42 Dizziness and giddiness; F17.200 Nicotine dependence, unspecified, uncomplicated
CPT/HCPCS: 36415; 74018; 74177; 80076; 82550; 82553; 83690; 93005; 96361; 96374; 96375; 99284; C9113; J1885; J2405; Q9967

== ENCOUNTER 2021-08-19 22:49 | Inpatient (IN) | payer OTHER, MEDICAID ==
[~2021-08-19] VITALS: Ht 162.6 cm; Wt 82.2 kg
[~2021-08-19 22:49] MED LIST changes: +MIRA3350 PO
[2021-08-19] MEDS ORDERED: HALOPERIDOL 5MG/ML VIAL (J1630 PER 1) As Ordered ONE (22:52)
[2021-08-19] MEDS ORDERED: LORazepam 2 MG/ML VIAL As Ordered ONE (22:52)
[2021-08-19] MEDS ORDERED: diphenhydrAMINE 50MG/ML VIAL (J1200) As Ordered ONE (22:53)
--- OUTSIDE RECORDS SUMMARY | 2021-08-19 22:53 | CCD ---
Author Author [facility] Organization [facility] Address Unknown Phone Unavailable Support Name Relationship Address Phone MILAD JACKSON Next Of Kin [address] [place] [address] MEEK HEARD Next Of Kin [address] [place] [address] Melina Carter Next Of Kin [address] [place] [id number] MARGO REYNA Next Of Kin [address] [place] [address] MASOOD SOTO Next Of Kin [address] [place] [address] Lukasz LEDEZMA Next Of Kin [address] [place] [address] [employer] Next Of Kin [address] [place] [address] UE Next Of Kin Unknown Unavailable ST Next Of Kin Unknown Unavailable EV ALEXANDER Next Of Kin [address] [place] [address] EV LEDEZMA Next Of Kin [address] [place] [address] UN Next Of Kin Unknown Unavailable CARRIE DIANE Next Of Kin [address] [address] YOLANDA LEDEZMA Next Of Kin [address] [place] [address] Unavailable BEBA HEARD ECON [address] [place] [address] Unavailable Re-disclosure Warning The records that you [...] is protected by Article 27-F of the [facility] Public Health law. If you continue you may have access to information: Regarding HIV / AIDS; Provided by facilities licensed or operated by the [facility] Office of Mental Health; or Provided by the [facility] Office for People With Developmental Disabilities. If such information is present, then the following [facility] mandated warning applies: This information has been [...] law may result in a fine or detention sentence or both. A general authorization for the release of medical or other information is NOT sufficient authorization for further disc losure. Encounters Encounter Providers Location Date Indications Data Source(s ) Unknown [address] [facility] Y [address] 12/05/2020 12:00:00 AM EDT eCW1 ([facility]) Unknown [address] [facility] Y [address] 07/10/2020 12:00:00 AM EDT eCW1 ([facility]) Medications No Information Insurance Providers Payer name Policy type / Coverage type Policy ID Covered republican ID Covered republican's relationship to villegas Policy Villegas Plan Information MEDICAID [facility] [id number] SP [id number] [facility] COMMUNITY PLAN [facility] [id number] SP [id number] [facility] COMM[facility] [id number] SP [id number] MEDICAID [id number] xxxxxxxx [id number] MEDICAID [id number] [facility] [id number] MEDICAID M [id number] S [id number] Medicaid P [id number] S [id number] SELF PAY ONLY [id number] SP [id number] MEDICAID [id number] SP [id number] [place] 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 [id number] SP [id number] [facility] FITNESS COORDINATOR [place] [id number] S [id number] [employer] [place] 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 [id number] SP [id number] [facility] FITNESS COORDINATOR DEP [id number] SP [id number] SELF PAY ONLY UNAVAILABLE UNAV AILABLE SELF PAY UNAVAILABLE UNAVAILA BLE MEDICAID [id number] SP [id number] [facility] [id number] SP [id number] [facility] MEDICAID [id number] SP [id number] T [id number] [facility] MEDICAID [id number] SP [id number] UNHC COMMUNITY PLAN MCDHMO [id number] SP [id number] SELF PAY ONLY [id number] SP [id number] EM[place] [id number] SP [id number] Problems, Conditions, and Diagnoses No Information Surgeries/Procedures No Information Results No Information Social History No Information Vital Signs ID Date Data Source UNK Name Value Range Interpretation Code Description Data Source(s) Body weight 171.00 [lb_av] 171.00 [lb_av] MEDEN T ([facility]) Systolic blood pressure 118 mm[Hg] 118 mm[Hg] M EDENT ([facility]) Diastolic blood pressure 69 mm[Hg] 69 mm[Hg] MEDENT ([facility]) Heart rate 53 /min 53 /min [facility] ([facility]) Respiratory rate 20 /min 20 /min [facility] ( [facility]) Body temperature 98.3 [degF] 98.3 [facility]
[2021-08-19] MEDS ORDERED: diphenhydrAMINE 50MG/ML VIAL (J1200) IM STA (22:56)
[2021-08-19] MEDS ORDERED: HALOPERIDOL 5MG/ML VIAL (J1630 PER 1) IM STA (22:56)
[2021-08-19] MEDS ORDERED: LORazepam 2 MG/ML VIAL IV STA (22:56)
[2021-08-19] MEDS ORDERED: NS 1,000 ML IV ONE ×4 (23:20→23:55)
[2021-08-19] MEDS ORDERED: ETOMIDATE INJ 20MG/10ML VIAL IV STA (23:22)
[2021-08-19] MEDS: ROCURONIUM BROMIDE 50 MG/5 ML VIAL IV SCH ×2 (23:28→23:40)
[2021-08-19 23:34] LABS: BASO # 0.1 10^3/uL (0.0-0.2); BASO % 1.1 % (0.0-1.0); EOS # 0.9 10^3/uL (0.0-0.5); EOS % 8.3 % (0.0-3.0); HEMOGLOBIN 15.6 g/dl (13.5-17.5); LYMPH # 3.8 10^3/uL (1.5-5.0); LYMPH % 33.8 % (24.0-44.0); MEAN CORPUSCULAR HEMOGLOBIN 30.6 pg (27.0-33.0); MEAN CORPUSCULAR HGB CONC 32.5 g/dl (32.0-36.5); MEAN CORPUSCULAR VOLUME 94.3 fl (80.0-96.0); MONO # 0.6 10^3/uL (0.0-0.8); MONO % 5.4 % (2.0-8.0); NEUTROPHILS # 5.7 10^3/uL (1.5-8.5); NEUTROPHILS % 51.2 % (36.0-66.0); PLATELET COUNT, AUTOMATED 258 10^3/uL (150-450); RED BLOOD COUNT 5.09 10^6/uL (4.30-6.10); WHITE BLOOD COUNT 11.1 10^3/uL (4.0-10.0)
[2021-08-19] MEDS: propofoL 1,000 MG in IV 1 EA IV SCH (23:38)
[2021-08-19 23:49] LABS: ABG BASE EXCESS -9.2 (-2.0-2.0); ABG HCO3 18.8 MEQ/L (22.0-26.0); ABG O2 SATURATION 99.4 % (95.0-99.0); ABG PARTIAL PRESSURE CO2 48.3 mmHg (35.0-45.0); ABG PARTIAL PRESSURE O2 350.4 mmHg (75.0-100.0); ABG STANDARD HCO3 17.3 MEQ/L (22.0-26.0); ABG TOTAL CO2 20.2 MEQ/L (22.0-29.0)
[2021-08-19 23:50] LABS: ABG pH (ARTERIAL) 7.207 UNITS (7.350-7.450)
[2021-08-19 23:52] LABS: ACETAMINOPHEN LEVEL < 2.0 UG/ML (10.0-30.0); ALBUMIN 4.3 GM/DL (3.2-5.2); ALT/SGPT 24 U/L (12-78); BILIRUBIN,DIRECT 0.1 MG/DL (0.0-0.2); BILIRUBIN,TOTAL 0.3 MG/DL (0.2-1.0); BLOOD UREA NITROGEN 6 MG/DL (7-18); CALCIUM LEVEL 8.8 MG/DL (8.5-10.1); CARBON DIOXIDE LEVEL 20 MEQ/L (21-32); CHLORIDE LEVEL 111 MEQ/L (98-107); CREATININE FOR GFR 1.12 MG/DL (0.70-1.30); ETHYL ALCOHOL (ETHANOL) 0.227 % (0.000-0.010); GLOMERULAR FILTRATION RATE > 60.0 (>60); GLUCOSE, FASTING 100 MG/DL (70-100); SALICYLATE LEVEL 4.4 MG/DL (5.0-30.0); SODIUM LEVEL 143 MEQ/L (136-145)
[2021-08-20] VITALS (47 sets, daily range): BP systolic 92–141; BP diastolic 54–88
[2021-08-20] MEDS ORDERED: MIDAZOLAM INJ 2MG/2ML VIAL (J2250 PER 1MG) As Ordered ONE (00:46)
[2021-08-20] MEDS ORDERED: MIDAZOLAM INJ 2MG/2ML VIAL (J2250 PER 1MG) IV ONE (00:50)
[2021-08-20 01:35] LABS: AMPHETAMINES LEVEL URINE NEGATIVE (NEGATIVE); BARBITURATES URINE NEGATIVE (NEGATIVE); BENZODIAZEPINES URINE NEGATIVE (NEGATIVE); CANNABINOIDS URINE POSITIVE (NEGATIVE); COCAINE METABOLITE URINE NEGATIVE (NEGATIVE); METHADONE URINE NEGATIVE (NEGATIVE); OPIATES URINE NEGATIVE (NEGATIVE); PHENCYCLIDINE URINE NEGATIVE (NEGATIVE)
--- OUTSIDE RECORDS SUMMARY | 2021-08-20 02:12 | CCD ---
Author Author [facility] Organization [facility] Address Unknown Phone Unavailable Support Name Relationship Address Phone MILAD JACKSON Next Of Kin [address] [place] [address] MEEK HEARD Next Of Kin [address] [place] [address] Melina Carter Next Of Kin [address] [place] [id number] MARGO REYNA Next Of Kin [address] [place] [address] MASOOD SOTO Next Of Kin [address] [place] [address] Lukasz LEDEZMA Next Of Kin [address] [place] [address] [employer] Next Of Kin [address] [place] [address] UE Next Of Kin Unknown Unavailable ST Next Of Kin Unknown Unavailable EV ALEXANDER Next Of Kin [address] [place] [address] EV LEDEZMA Next Of Kin [address] [place] [address] UN Next Of Kin Unknown Unavailable CARRIE DIAEN Next Of Kin [address] [address] YOLANDA LEDEZMA Next Of Kin [address] [place] [address] Unavailable BEBA HEARD ECON [address] [place] [address] Unavailable Re-disclosure Warning The records that you [...] is protected by Article 27-F of the [facility] Public Health law. If you continue you may have access to information: Regarding HIV / AIDS; Provided by facilities licensed or operated by the [facility] Office of Mental Health; or Provided by the [facility] Office for People With Developmental Disabilities. If such information is present, then the following [facility] mandated warning applies: This information has [...] law may result in a fine or chcf sentence or both. A general authorization for the release of medical or other information is NOT sufficient authorization for further disc losure. Encounters Encounter Providers Location Date Indications Data Source(s ) Unknown [address] [facility] Y [address] 12/05/2020 12:00:00 AM EDT eCW1 ([facility]) Unknown [address] [facility] Y [address] 07/10/2020 12:00:00 AM EDT eCW1 ([facility]) Medications No Information Insurance Providers Payer name Policy type / Coverage type Policy ID Covered republican ID Covered republican's relationship to villegas Policy Villegas Plan Information MEDICAID [facility] [id number] SP [id number] [facility] COMMUNITY PLAN [facility] [id number] SP [id number] [facility] [id number] SP [id number] MEDICAID [id number] xxxxxxxx [id number] MEDICAID [id number] [facility] [id number] MEDICAID M [id number] S [id number] Medicaid P [id number] S [id number] SELF PAY ONLY [id number] SP [id number] MEDICAID [id number] SP [id number] [place] 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 [id number] SP [id number] [facility] 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 [id number] S [id number] [place] 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 [id number] SP [id number] [facility] DOUGH BRAKER DEP [id number] SP [id number] SELF PAY ONLY UNAVAILABLE UNAV AILABLE SELF PAY UNAVAILABLE UNAVAILA BLE MEDICAID [id number] SP [id number] [facility] [id number] SP [id number] [facility] MEDICAID [id number] SP [id number] T [id number] [facility] MEDICAID [id number] SP [id number] UNHC COMMUNITY PLAN MCDHMO [id number] SP [id number] SELF PAY ONLY [id number] SP [id number] EMED[place] [id number] SP [id number] Problems, Conditions, and Diagnoses No Information Surgeries/Procedures No Information Results No Information Social History No Information Vital Signs ID Date Data Source UNK Name Value Range Interpretation Code Description Data Source(s) Systolic blood pressure 118 mm[Hg] 118 mm[Hg] M EDENT ([facility]) Body weight 171.00 [lb_av] 171.00 [lb_av] MEDEN T ([facility]) Diastolic blood pressure 69 mm[Hg] 69 mm[Hg] [facility] ([facility]) Heart rate 53 /min 53 /min [facility] ([facility]) Respiratory rate 20 /min 20 /min [facility] ( [facility]) Body temperature 98.3 [degF] 98.3 [degF] [facility] ([facility])
[2021-08-20] MEDS: propofoL 1,000 MG in IV 1 EA IV SCH ×6 (03:01→22:40)
[2021-08-20 03:36] LABS: RSV AMPLIFICATION NEGATIVE (NEGATIVE)
[2021-08-20 03:45] LABS: ABG BASE EXCESS -7.5 (-2.0-2.0); ABG HCO3 19.5 MEQ/L (22.0-26.0); ABG O2 SATURATION 99.5 % (95.0-99.0); ABG PARTIAL PRESSURE O2 281.3 mmHg (75.0-100.0); ABG STANDARD HCO3 18.5 MEQ/L (22.0-26.0); ABG TOTAL CO2 20.9 MEQ/L (22.0-29.0); ABG pH (ARTERIAL) 7.255 UNITS (7.350-7.450)
[2021-08-20] MEDS ORDERED: LEVALBUTEROL 1.25 MG/0.5 ML CONCENTRATE NEB NEB PRN (04:00)
--- NOTE | 2021-08-20 04:00 | HPEPDOC ---
[facility] Medical History & Physical Date of Admission Aug 20, 2021 Date of Service: Aug 20, 2021 History and Physical REASON FOR CRITICAL CARE CONSULTATION/CHIEF COMPLAINT: Respiratory failure HISTORY OF PRESENT ILLNESS: History obtained from chart 21-year-old male with unknown medical history, per chart polysubstance abuse who presented to the emergency department brought in by EMS for agitation and altered mental status. On arrival to the emergency department he was tachycardic, sinus, otherwise his vital signs are stable. He was extremely agitated and combative. He was given Narcan for suspected opiate intoxication but with no response. He was subsequently sedated with Haldol, Ativan, Benadryl however he continued to be combative and he was subsequently intubated. His lactic acid was initially 9.8, his urine toxicology screen revealed cannabinoids and his alcohol level was 0.227, his salicylate level 4.4. PAST MEDICAL/SURGICAL HISTORY: No past medical history and no past surgical history. FAMILY HISTORY: Father is and had diabetes and heart disease. Mother is alive. Siblings are alive and well. SOCIAL HISTORY: Active tobacco use. Polysubstance abuse, alcohol use, marijuana use ALLERGIES: Please see below. HOME MEDICATIONS: Please see below. REVIEW OF SYSTEMS: Unable to obtain as patient is intubated PHYSICAL EXAMINATION: VITAL SIGNS: Please see below. GENERAL APPEARANCE: On mechanical ventilation. Not in distress HEENT: ET tube in place. No thyromegaly, trachea midline, pupils 4 mm bilaterally and nonreactive. Normal mucous membranes RESPIRATORY: CTA B/L, good air entry. CARDIOVASCULAR: +s1 s2, no murmurs. ABDOMEN: nontender, not distended, +BS EXTREMITIES: no edema or erythema. palpable distal pulses SKIN: no rash, no purpura NEUROLOGICAL: Sedated. Does not withdrawal to pain LABS/IMAGING: Chest x-ray today ET tube is approximately 4 cm above the norma in good position. There are no acute pulmonary disease IMPRESSION: The most critical problems requiring my immediate presence at bedside are: 1. Acute respiratory failure requiring intubation for airway protection 2. Suspected drug overdose 3. History of polysubstance abuse 4. Lactic acidosis PLAN: FACING BASTER JUMPBASTING: Continue with propofol for light sedation. Daily awakening trials. Folate, thiamine, multivitamin. PULM: HOB 30 degrees. Maintain Sp02 94-98%. Titrate down oxygen as tolerated. Vent changes as follows respiratory rate 16, tidal volume 470. CARDIO: Maintain MAPs 60-65. Not on vasopressors. GI: GI ppx. N.p.o. RENAL: monitor lytes. Check serum osmolality. Start bicarb drip 75 cc an hour ID: Monitor off antibiotics and follow-up cultures. ENDO: Monitor FS per routine. Goal range 140-180. HEME: DVT ppx LINES/CATHETERS: Peripherals and Navarro. CODE STATUS: Full code. DISPOSITION: ICU. A total of 61 minutes of critical care time was spent on patient care, not including procedures Vital Signs Vital Signs Date Time Temp Pulse Resp B/P (MAP) Pulse Ox O2 Delivery O2 Flow Rate FiO2 08/20/21 02:50 115/61 (79) 08/20/21 02:40 79 100 08/20/21 02:10 98.2 15 08/20/21 00:19 Ventilator 08/19/21 23:32 80 Laboratory Data Labs 24H Laboratory Tests 2 08/19/21 23:05: Immature Granulocyte % (Auto) 0.2, Neutrophils (%) (Auto) 51.2, Lymphocytes (%) (Auto) 33.8, Monocytes (%) (Auto) 5.4, Eosinophils (%) (Auto) 8.3H, Basophils (%) (Auto) 1.1H, Neutrophils # (Auto) 5.7, Lymphocytes # (Auto) 3.8, Monocytes # (Auto) 0.6, Eosinophils # (Auto) 0.9H, Basophils # (Auto) 0.1, Nucleated Red Blood Cells % (auto) 0.0, Anion Gap 12, Glomerular Filtration Rate > 60.0, Lactic Acid Level 9.8*H, Calcium Level 8.8, Total Bilirubin 0.3, Direct Bilir ubin 0.1, Aspartate Amino Transf (AST/SGOT) 23, Alanine Aminotransferase (ALT/SGPT) 24, Alkaline Phosphatase 67, Total Creatine Kinase 357H, Total Protein 8.0, Albumin 4.3, Albumin/Globulin Ratio 1.2, Thyroid Stimulating Hormone (TSH) 2.870, Salicylates Level 4.4L, Acetaminophen Level < 2.0L, Ethyl Alcohol Level 0.227H 08/19/21 23:43: Blood Gas Bicarbonate Standard 17.3L, Arterial Blood pH 7.207*L, Arterial Blood Partial Pressure CO2 48.3H, Arterial Blood Partial Pressure O2 350.4H, Arterial Blood Total CO2 20.2L, Arterial Blood HCO3 18.8L, Arterial Blood Base Excess -9.2L, Arterial Blood Oxygen Saturation 99.4H 08/20/21 01:15: Urine Opiates Screen NEGATIVE, Urine Methadone Screen NEGATIVE, Urine Barbiturates Screen NEGATIVE, Urine Phencyclidine Screen NEGATIVE, Urine Amphetamines Screen NEGATIVE, Urine Benzodiazepines Screen NEGATIVE, Urine Coca ine Metabolite Screen NEGATIVE, Urine Cannabinoids Screen POSITIVEH 08/20/21 02:06: Coronavirus (COVID-19)(PCR) NEGATIVE, Influenza Type A (RT-PCR) NEGATIVE, Influenza Type B (RT-PCR) NEGATIVE, Respiratory Syncytial Virus (PCR) NEGATIVE 08/20/21 02:37: Lactic Acid Level 1.4 08/20/21 03:31: Blood Gas Bicarbonate Standard 18.5L, Arterial Blood pH 7.255L, Arterial Blood Partial Pressure CO2 45.0, Arterial Blood Partial Pressure O2 281.3H, Arterial Blood Total CO2 20.9L, Arterial Blood HCO3 19.5L, Arterial Blood Base Excess - 7.5L, Arterial Blood Oxygen Saturation 99.5H CBC/BMP Laboratory Tests 08/19/21 23:05 Microbiology Microbiology 08/20/21 Blood Culture, Received Pending 08/20/21 Blood Culture, Received Pending Home Medications Scheduled Polyethylene Glycol 3350 (Miralax) 119 Gm Powder, 17 GRAM PO DAILY for constipation dissolve in water Scheduled PRN Ibuprofen (Ibuprofen) 800 Mg Tablet, 800 MG PO Q6H PRN for PAIN Allergies Coded Allergies: No Known Allergies (Unverified , 10/01/19) A-FIB/CHADSVASC A-FIB History Current/History of A-Fib/PAF?: No Current PO Anticoag Therapy: PRAVEENA Slater MD Aug 20, 2021 04:00
[2021-08-20] MEDS ORDERED: MIDAZOLAM INJ 2MG/2ML VIAL (J2250 PER 1MG) IV STA ×2 (04:04→07:20)
--- OUTSIDE RECORDS SUMMARY | 2021-08-20 04:14 | CCD ---
Author Author [facility] Organization [facility] Address Unknown Phone Unavailable Support Name Relationship Address Phone MILAD JACKSON Next Of Kin [address] [place] [address] MEEK HEARD Next Of Kin [address] [place] [address] Melina Carter Next Of Kin [address] [place] [id number] MARGO REYNA Next Of Kin [address] [place] [address] MASOOD SOTO Next Of [place] [address] [place] [address] Lukasz LEDEZMA Next Of Kin [address] [place] [address] [place] [employer] Next Of Kin [address] [place] [address] UE Next Of Kin Unknown Unavailable ST Next Of Kin Unknown Unavailable EV ALEXANDER Next Of Kin [address] [place] [address] EV LEDEZMA Next Of Kin [address] [place] [address] UN Next Of Kin Unknown Unavailable CARRIE DIANE Next Of [address] [address] YOLANDA LEDEZMA Next Of Kin [address] [place] [address] Unavailable BEBA HEARD ECON [address] [place] [address] Unavailable Re-disclosure Warning The records that you [...] is protected by Article 27-F of the [facility] Public Health law. If you continue you may have access to information: Regarding HIV / AIDS; Provided by facilities licensed or operated by the [facility] Office of Mental Health; or Provided by the [facility] Office for People With Developmental Disabilities. If such information is present, then the following [facility] mandated warning applies: This information [...] law may result in a fine or longterm sentence or both. A general authorization for the release of medical or other information is NOT sufficient authorization for further disc losure. Encounters Encounter Providers Location Date Indications Data Source(s ) Unknown [address] [facility] [address] [id number] 12/05/2020 12:00:00 AM EDT eCW1 ([facility]) Unknown [address] [facility] [address] [id number] 07/10/2020 12:00:00 AM EDT eCW1 ([facility]) Medications No Information Insurance Providers Payer name Policy type / Coverage type Policy ID Covered green party ID Covered green party's relationship to villegas Policy Villegas Plan Information MEDICAID [facility] [id number] SP [id number] [facility] COMMUNITY PLAN [facility] [id number] SP [id number] [facility] COMMUNITY PLAN [facility] [id number] SP [id number] MEDICAID [id number] MEDICAID [id number] [facility] [id number] MEDICAID [id number] S [id number] Medicaid P [id number] SELF PAY ONLY [id number] SP [id number] MEDICAID [id number] SP [id number] [place] [facility] [place] [id number] [address] [id number] [facility] NET SOFTWARE DEVELOPER [place] O [id number] S [id number] [place] [facility] [id number] SP [id number] [facility] NET SOFTWARE DEVELOPER DEP [id number] SP [id number] SELF PAY ONLY UNAVAILABLE UNAV AILABLE SELF PAY UNAVAILABLE UNAVAILA BLE MEDICAID [id number] SP [id number] [facility] [id number] SP [id number] [facility] MEDICAID [id number] SP [id number] T [id number] [facility] MEDICAID [id number] SP [id number] COMMUNITY PLAN [employer] [id number] SP [id number] SELF PAY ONLY [id number] SP [id number] [place] [id number] SP [id number] Problems, Conditions, and Diagnoses No Information Surgeries/Procedures No Information Results No Information Social History No Information Vital Signs ID Date Data Source UNK Name Value Range Interpretation Code Description Data Source(s) Body weight 171.00 [lb_av] 171.00 [lb_av] MEDEN T ([facility]) Systolic blood pressure 118 mm[Hg] 118 mm[Hg] M EDENT ([facility]) Diastolic blood pressure 69 mm[Hg] 69 mm[Hg] MEDENT ([facility]) Heart rate 53 /min 53 /min [facility] ([facility]) Respiratory rate 20 /min 20 /min [facility] ( [facility]) Body temperature 98.3 [degF] 98.3 [degF] [facility] ([facility])
[2021-08-20] MEDS ORDERED: MULTIVITAMINS/MINERALS THERAP 1 TAB PO ONE (04:15)
[2021-08-20] MEDS ORDERED: THIAMINE 200MG 2ML VIAL IM ONE (04:15)
[2021-08-20] MEDS ORDERED: D5W/LR 1,000 ML IV SCH (04:15)
[2021-08-20] MEDS ORDERED: FOLIC ACID 1 MG in NS 50 ML IV ONE (04:45)
[2021-08-20] MEDS ORDERED: SODIUM BICARBONATE 150 MEQ in D5W 1,000 ML IV SCH (05:00)
[2021-08-20 06:31] LABS: ABG BASE EXCESS -4.5 (-2.0-2.0); ABG HCO3 21.1 MEQ/L (22.0-26.0); ABG O2 SATURATION 98.7 % (95.0-99.0); ABG PARTIAL PRESSURE CO2 40.7 mmHg (35.0-45.0); ABG PARTIAL PRESSURE O2 146.8 mmHg (75.0-100.0); ABG STANDARD HCO3 20.8 MEQ/L (22.0-26.0); ABG TOTAL CO2 22.3 MEQ/L (22.0-29.0); ABG pH (ARTERIAL) 7.332 UNITS (7.350-7.450)
[2021-08-20] MEDS ORDERED: HOME MED LIST COMPLETE! XX SCH (07:10)
[2021-08-20 08:36] LABS: BASO # 0.1 10^3/uL (0.0-0.2); BASO % 0.8 % (0.0-1.0); EOS # 0.6 10^3/uL (0.0-0.5); EOS % 6.6 % (0.0-3.0); HEMATOCRIT 41.8 % (42.0-52.0); HEMOGLOBIN 13.8 g/dl (13.5-17.5); LYMPH % 22.5 % (24.0-44.0); MEAN CORPUSCULAR HEMOGLOBIN 30.9 pg (27.0-33.0); MEAN CORPUSCULAR VOLUME 93.5 fl (80.0-96.0); MONO # 0.6 10^3/uL (0.0-0.8); MONO % 6.3 % (2.0-8.0); NEUTROPHILS # 5.5 10^3/uL (1.5-8.5); NEUTROPHILS % 63.5 % (36.0-66.0); PLATELET COUNT, AUTOMATED 165 10^3/uL (150-450); RED BLOOD COUNT 4.47 10^6/uL (4.30-6.10); WHITE BLOOD COUNT 8.7 10^3/uL (4.0-10.0)
--- NOTE | 2021-08-20 09:07 | REP ---
INDICATION: intubated. COMPARISON: 08/19/2021. TECHNIQUE: Single portable AP view of the chest was performed. FINDINGS: Endotracheal tube is noted with the tip 3.5 cm above the norma. Nasogastric tube is seen with the side port at the level of the clavicles. Lungs are clear. The heart and mediastinum are unremarkable and unchanged. Visualized osseous structures appear intact. IMPRESSION: No acute infiltrate. Endotracheal tube tip 3.5 cm above the norma. Nasogastric tube side port is at the level of the clavicles. <Electronically signed by Jerald Bhatt > 08/20/21 0903
--- NOTE | 2021-08-20 09:09 | REP ---
INDICATION: assess OGT. COMPARISON: 08/20/2021 8:07 a.m. TECHNIQUE: Single portable AP view of the chest was performed. FINDINGS: Endotracheal tube tip is 2.2 cm above the norma. Nasogastric tube side port is just below the level of the clavicles. This should be advanced at least 25 cm. Lungs remain clear. Heart and mediastinum are unremarkable. IMPRESSION: Nasogastric tube side port is just below the level of the clavicles and should be advanced at least 25 cm. <Electronically signed by Jerald Bhatt > 08/20/21 0905
[2021-08-20 09:18] LABS: ALBUMIN 3.1 GM/DL (3.2-5.2); ALT/SGPT 20 U/L (12-78); BILIRUBIN,TOTAL 0.2 MG/DL (0.2-1.0); BLOOD UREA NITROGEN 4 MG/DL (7-18); CALCIUM LEVEL 7.7 MG/DL (8.5-10.1); CARBON DIOXIDE LEVEL 25 MEQ/L (21-32); CHLORIDE LEVEL 114 MEQ/L (98-107); CREATININE FOR GFR 0.82 MG/DL (0.70-1.30); GLOMERULAR FILTRATION RATE > 60.0 (>60); GLUCOSE, FASTING 86 MG/DL (70-100); MAGNESIUM LEVEL 2.1 MG/DL (1.8-2.4); PHOSPHORUS LEVEL 3.2 MG/DL (2.5-4.9); SODIUM LEVEL 145 MEQ/L (136-145); TOTAL PROTEIN 6.2 GM/DL (6.4-8.2)
[2021-08-20] MEDS: dexmedeTOMidine 200 MCG in IV 1 EA IV SCH ×5 (09:34→22:30)
--- NOTE | 2021-08-20 09:41 | IPNPDOC ---
Text Note Date of Service The patient was seen on 08/20/21. NOTE CRITICAL CARE PROGRESS NOTE: SUBJECTIVE: Patient seen and examined at bedside. Patient remains on mechanical ventilation. There were no overnight events. Patient is currently on propofol at 60. He is comfortable and follows commands on the ventilator. T-max 98.4. He has good urine output. All other ROS are negative except as mentioned above PHYSICAL EXAMINATION: VITAL SIGNS: Please see below. GENERAL APPEARANCE: On mechanical ventilation, sedated but arousable HEENT: no thyromegaly, trachea midline, PERRLA. normal mucous membranes RESPIRATORY: CTA B/L, good air entry. CARDIOVASCULAR: +s1 s2, no murmurs. ABDOMEN: nontender, not distended, +BS EXTREMITIES: no edema or erythema. palpable distal pulses SKIN: no rash, no purpura NEUROLOGICAL: No focal deficits. Follow commands and moves all extremities PERTINENT LABS/IMAGING: Chest x-ray read by me this morning ET tube is in good position. OG tube is not below the diaphragm. There is no pulmonary opacities IMPRESSION: 1. Acute respiratory failure requiring intubation for airway protection 2. Suspected drug overdose with cannabinoids in the urine and positive ethanol and serum 3. History of polysubstance abuse 4. Lactic acidosis improved PLAN: QUALITY AND RELIABILITY ENGINEER: Start Precedex to help facilitate awakening trial. Titrate off propofol. Continue with folic acid, thiamine, multivitamin. PULM: HOB 30 degrees. Maintain Sp02 94-98%. Titrate down oxygen as tolerated. ABG pH 7.33 CO2 40 O2 146 on 420/16/5/40. No vent changes. SBT if tolerates SAT CARDIO: Maintain MAPs 60-65. Not on vasopressors. GI: GI ppx. N.p.o. RENAL: monitor lytes. DC bicarb drip ID: Monitor off antibiotics and follow-up cultures. ENDO: Monitor FS per routine. Goal range 140-180. HEME: DVT ppx LINES/CATHETERS: Peripherals and Navarro. CODE STATUS: Full code. DISPOSITION: ICU. A total of 49 minutes of critical care time was spent on patient care, not including procedures VS,Fishbone, I+O VS, Fishbone, I+O Laboratory Tests 08/19/21 23:05 08/20/21 08:20 Vital Signs Date Time Temp Pulse Resp B/P (MAP) Pulse Ox O2 Delivery O2 Flow Rate FiO2 08/20/21 08:10 87 16 100 35 08/20/21 07:16 130/84 (99) 08/20/21 03:01 Ventilator 08/20/21 02:10 98.2 I&O- Last 24 Hours up to 6 AM 08/20/21 06:00 Intake Total 4100 ml Balance 4100 ml PRAVEENA ESPINOZA MD Aug 20, 2021 09:41
[2021-08-20] MEDS: MIDAZOLAM INJ 2MG/2ML VIAL (J2250 PER 1MG) IV PRN ×3 (09:43→18:48)
[2021-08-20] MEDS ORDERED: fentaNYL 100 MCG/2 ML INJECTION (J3010) As Ordered ONE (09:50)
[2021-08-20] MEDS ORDERED: fentaNYL 100 MCG/2 ML INJECTION (J3010) IV ONE (10:05)
[2021-08-20] MEDS: PANTOPRAZOLE 40MG VIAL (C9113 PER 1) IV SCH (10:17)
[2021-08-20] MEDS: ENOXAPARIN 40MG/0.4ML SYRINGE (J1650 PER 10MG) SC SCH (10:17)
[2021-08-20] MEDS: D5W/0.45% SODIUM CHLORIDE 1,000 ML IV SCH (10:28)
[2021-08-20] MEDS ORDERED: fentaNYL CITRATE 1,000 MCG in NS 80 ML IV SCH (11:00)
[2021-08-20 11:41] LABS: VENOUS BASE EXCESS -2.2 (-2.0-2.0); VENOUS PARTIAL PRESSURE O2 179.2 mmHg (30.0-50.0); VENOUS PH 7.404 UNITS (7.330-7.430); VENOUS STANDARD HCO3 22.7 MEQ/L; VENOUS TOTAL CO2 23.1 MEQ/L (24.0-28.0)
[2021-08-20] MEDS ORDERED: REFRIGERATOR IV KEYS XX PRN (12:20)
[2021-08-20 12:22] LABS: ALBUMIN 3.1 GM/DL (3.2-5.2); ALT/SGPT 20 U/L (12-78); BILIRUBIN,TOTAL 0.3 MG/DL (0.2-1.0); BLOOD UREA NITROGEN 4 MG/DL (7-18); CALCIUM LEVEL 7.9 MG/DL (8.5-10.1); CARBON DIOXIDE LEVEL 25 MEQ/L (21-32); CHLORIDE LEVEL 114 MEQ/L (98-107); CREATININE FOR GFR 0.68 MG/DL (0.70-1.30); GLOMERULAR FILTRATION RATE > 60.0 (>60); GLUCOSE, FASTING 95 MG/DL (70-100); POTASSIUM SERUM 3.8 MEQ/L (3.5-5.1); SALICYLATE LEVEL 2.7 MG/DL (5.0-30.0); SODIUM LEVEL 143 MEQ/L (136-145); TOTAL PROTEIN 5.8 GM/DL (6.4-8.2)
[2021-08-20] MEDS: CHLORHEXIDINE GLUCONATE 0.12 % 15ML UDC (PERIDEX ORAL RINSE) MT SCH ×2 (12:43→20:17)
--- NOTE | 2021-08-20 14:32 | REP ---
INDICATION: altered mentation. COMPARISON: None. TECHNIQUE: CT brain performed in the axial plane. Coronal reconstruction images are performed. FINDINGS: The ventricles are normal in size and position.. There is no midline shift or mass effect. Bhatt-white differentiation is well maintained. There is no acute intracranial hemorrhage or extra-axial fluid collection. Bone window examination is unremarkable. The visualized mastoid air cells and paranasal sinuses are clear. IMPRESSION: Negative noncontrast CT brain. A preliminary report was provided by [facility] at the time of the exam. <Electronically signed by Jerald Bhatt > 08/20/21 [id number]
--- NOTE | 2021-08-20 15:00 | REP ---
INDICATION: Drug Overdose. COMPARISON: 07/10/2020. TECHNIQUE: Single portable AP view of the chest was performed. FINDINGS: There is no acute infiltrate or pulmonary edema. Lungs are clear. The heart is not significantly enlarged. The mediastinal silhouette is unremarkable. The visualized osseous structures are intact.3.3 cm above the norma. There appears to be nasogastric tube in the proximal esophagus. IMPRESSION: No acute pulmonary disease.The tracheal tube tip 3.3 cm above the norma. Nasogastric tube in the proximal esophagus. A preliminary report was provided by [facility] at the time of the exam. <Electronically signed by Jerald Bhatt > 08/20/21 0093
[2021-08-20] MEDS ORDERED: ETOMIDATE INJ 20MG/10ML VIAL ONE (22:46)
[2021-08-20] MEDS ORDERED: ROCURONIUM BROMIDE 50 MG/5 ML VIAL ONE (22:46)
[2021-08-21] VITALS (18 sets, daily range): BP systolic 102–128; BP diastolic 57–72
[2021-08-21] MEDS: D5W/0.45% SODIUM CHLORIDE 1,000 ML IV SCH (00:46)
[2021-08-21] MEDS: propofoL 1,000 MG in IV 1 EA IV SCH ×2 (01:11→06:17)
[2021-08-21] MEDS: dexmedeTOMidine 200 MCG in IV 1 EA IV SCH ×2 (02:25→06:18)
[2021-08-21 05:55] LABS: VENOUS BASE EXCESS -0.6 (-2.0-2.0); VENOUS HCO3 22.9 MEQ/L (23.0-27.0); VENOUS O2 SATURATION 93.7 % (60.0-80.0); VENOUS PARTIAL PRESSURE CO2 34.7 mmHg (38.0-50.0); VENOUS PARTIAL PRESSURE O2 64.1 mmHg (30.0-50.0); VENOUS PH 7.438 UNITS (7.330-7.430); VENOUS STANDARD HCO3 23.9 MEQ/L
[2021-08-21 06:01] LABS: BASO # 0.1 10^3/uL (0.0-0.2); BASO % 0.5 % (0.0-1.0); EOS # 0.5 10^3/uL (0.0-0.5); EOS % 3.8 % (0.0-3.0); HEMATOCRIT 41.4 % (42.0-52.0); HEMOGLOBIN 13.9 g/dl (13.5-17.5); LYMPH # 1.2 10^3/uL (1.5-5.0); LYMPH % 9.1 % (24.0-44.0); MEAN CORPUSCULAR HEMOGLOBIN 30.5 pg (27.0-33.0); MEAN CORPUSCULAR HGB CONC 33.6 g/dl (32.0-36.5); MEAN CORPUSCULAR VOLUME 90.8 fl (80.0-96.0); MONO # 1.1 10^3/uL (0.0-0.8); MONO % 8.2 % (2.0-8.0); NEUTROPHILS # 9.9 10^3/uL (1.5-8.5); PLATELET COUNT, AUTOMATED 172 10^3/uL (150-450); RED BLOOD COUNT 4.56 10^6/uL (4.30-6.10); WHITE BLOOD COUNT 12.7 10^3/uL (4.0-10.0)
[2021-08-21 06:04] LABS: ABG BASE EXCESS -1.2 (-2.0-2.0); ABG HCO3 21.6 MEQ/L (22.0-26.0); ABG O2 SATURATION 97.3 % (95.0-99.0); ABG PARTIAL PRESSURE O2 91.1 mmHg (75.0-100.0); ABG STANDARD HCO3 23.5 MEQ/L (22.0-26.0); ABG TOTAL CO2 22.6 MEQ/L (22.0-29.0); ABG pH (ARTERIAL) 7.461 UNITS (7.350-7.450)
[2021-08-21 06:28] LABS: ALT/SGPT 18 U/L (12-78); BILIRUBIN,TOTAL 0.7 MG/DL (0.2-1.0); BLOOD UREA NITROGEN 5 MG/DL (7-18); CALCIUM LEVEL 7.9 MG/DL (8.5-10.1); CARBON DIOXIDE LEVEL 25 MEQ/L (21-32); CHLORIDE LEVEL 108 MEQ/L (98-107); CREATININE FOR GFR 0.77 MG/DL (0.70-1.30); GLOMERULAR FILTRATION RATE > 60.0 (>60); GLUCOSE, FASTING 107 MG/DL (70-100); MAGNESIUM LEVEL 1.6 MG/DL (1.8-2.4); PHOSPHORUS LEVEL 2.4 MG/DL (2.5-4.9); POTASSIUM SERUM 3.5 MEQ/L (3.5-5.1); SALICYLATE LEVEL 2.2 MG/DL (5.0-30.0); SODIUM LEVEL 139 MEQ/L (136-145); TOTAL PROTEIN 5.7 GM/DL (6.4-8.2)
[2021-08-21] MEDS: MIDAZOLAM INJ 2MG/2ML VIAL (J2250 PER 1MG) IV PRN (07:03)
--- NOTE | 2021-08-21 07:55 | REP ---
INDICATION: IINTUBTAED COMPARISON: None. TECHNIQUE: Portable AP view of the chest FINDINGS: Endotracheal tube 2.4 cm above the norma. Nasogastric tube extends to the mid esophagus and warrants advancement. The mediastinum and cardiac silhouette are stable and within normal limits for portable technique. The lung correia are clear without acute consolidation, effusion, or pneumothorax. Skeletal structures are intact. IMPRESSION: 1. Endotracheal tube in satisfactory position. 2. Nasogastric tube requires advancement. <Electronically signed by Travis Royal > 08/21/21 0429
[2021-08-21] MEDS: CHLORHEXIDINE GLUCONATE 0.12 % 15ML UDC (PERIDEX ORAL RINSE) MT SCH (09:00)
[2021-08-21] MEDS: ENOXAPARIN 40MG/0.4ML SYRINGE (J1650 PER 10MG) SC SCH (09:35)
[2021-08-21] MEDS: PANTOPRAZOLE 40MG VIAL (C9113 PER 1) IV SCH (09:35)
--- NOTE | 2021-08-21 09:43 | IPNPDOC ---
Text Note Date of Service The patient was seen on 08/21/21. NOTE CRITICAL CARE PROGRESS NOTE: SUBJECTIVE: Patient seen and examined at bedside. He remains a mechanical ventilation. There were no overnight events. Patient this morning is sedated with propofol, Precedex, fentanyl. He is on D5W half normal saline at 75 cc an hour. He is not getting tube feeds. All other ROS are negative except as mentioned above PHYSICAL EXAMINATION: VITAL SIGNS: Please see below. GENERAL APPEARANCE: Sedated but arousable HEENT: ET tube in place. No thyromegaly, trachea midline, PERRLA. normal mucous membranes RESPIRATORY: CTA B/L, good air entry. CARDIOVASCULAR: +s1 s2, no murmurs. ABDOMEN: nontender, not distended, +BS EXTREMITIES: no edema or erythema. palpable distal pulses SKIN: no rash, no purpura NEUROLOGICAL: He follows simple commands and moves all extremities PERTINENT LABS/IMAGING: Chest x-ray from this morning read by me ET tube is in appropriate position and there are no pulmonary opacities. IMPRESSION: 1. Acute respiratory failure requiring intubation for airway protection status post extubation this morning 2. Suspected drug overdose with cannabinoids in the urine and positive ethanol in serum 3. History of polysubstance abuse 4. Lactic acidosis improved PLAN: DIESEL ENGINE I PIPE FITTER: Titrate off Precedex. SAT PULM: HOB 30 degrees. Maintain Sp02 94-98%. Titrate down oxygen as tolerated. Patient passed SBT and was extubated this morning CARDIO: Maintain MAPs 60-65. Not on vasopressors. GI: GI ppx. N.p.o. swallow evaluation and advance diet as tolerated RENAL: monitor lytes. Continue with IV fluids ID: Monitor off antibiotics and follow-up cultures. ENDO: Monitor FS per routine. Goal range 140-180. HEME: DVT ppx LINES/CATHETERS: Peripherals. DC Navarro CODE STATUS: Full code. DISPOSITION: ICU. After extubation patient is able to speak and he is upset about being intubated and being in the hospital. He says that he wants to leave the hospital as soon as possible. He is regretful about using illegal drugs and he says that he will never use them again. I counseled him that he would be leaving the hospital AGAINST MEDICAL ADVICE and he is at risk for decompensation of his medical cond ition and even if he leaves AMA. He communicated understanding. A total of 50 minutes of critical care time was spent on patient care, not including procedures VS,Fishbone, I+O VS, Fishbone, I+O Laboratory Tests 08/20/21 11:22 08/21/21 05:18 Vital Signs Date Time Temp Pulse Resp B/P (MAP) Pulse Ox O2 Delivery O2 Flow Rate FiO2 08/21/21 06:30 80 112/63 (79) 96 Ventilator 21 08/21/21 04:00 98.9 17 I&O- Last 24 Hours up to 6 AM 08/21/21 06:00 Intake Total 2675.6 ml Output Total 1580 ml Balance 1095.6 ml PRAVEENA ESPINOZA MD Aug 21, 2021 09:43
[2021-08-21] MEDS ORDERED: ACETAMINOPHEN TAB 650MG DOSE (2X325MG) PO PRN (11:00)
--- NOTE | 2021-08-21 13:14 | DS.PDOC ---
Discharge Summary General Date of Admission Aug 20, 2021 at 04:00 Date of Discharge 08/21/2021 Discharge Summary PROCEDURES PERFORMED DURING STAY: Endotracheal intubation ADMITTING DIAGNOSES: 1. Acute respiratory failure intubated for airway protection 2. Drug overdoseheroin, fentanyl, bath salts, THC. DISCHARGE DIAGNOSES: 1. Same. HOSPITAL COURSE: 21-year-old male with no past medical history other than polysubstance abuse who initially was brought in by EMS for unresponsiveness at home. When he arrived to the emergency department his vitals were stable however he was severely agitated and combative. He was given multiple sedatives however he was eventually intubated and placed on mechanical ventilation. His hospital course was uncomplicated. He was on the ventilator for 24 hours. He was extubated today. 1 hour after extubation the patient started to say he needed to leave the hospital. He demanded that the IV fluids that he was getting be stopped and that he is refusing further treatment and blood draws. He is demanding to leave AGAINST MEDICAL ADVICE. I counseled him extensively on the importance of staying in the hospital for continued medical treatment including to assess for substance withdrawal symptoms and to correct any electrolyte abnormalities and abnormal blood work. I counseled him extensively on the risk of leaving AGAINST MEDICAL ADVICE including the possibility of . He communicated understanding and wishes to leave AGAINST MEDICAL ADVICE. TIME SPENT ON DISCHARGE: 15 minutes. Vital Signs/I&Os Vital Signs Date Time Temp Pulse Resp B/P (MAP) Pulse Ox O2 Delivery O2 Flow Rate FiO2 08/21/21 10:00 25 08/21/21 10:00 83 17 122/60 (80) 94 Room Air 08/21/21 08:00 98.6 I&O- Last 24 Hours up to 6 AM 08/21/21 06:00 Intake Total 2675.6 ml Output Total 1580 ml Balance 1095.6 ml Laboratory Data Labs 24H Laboratory Tests 2 08/21/21 05:18: Immature Granulocyte % (Auto) 0.4, Neutrophils (%) (Auto) 78.0H, Lymphocytes (%) (Auto) 9.1L, Monocytes (%) (Auto) 8.2H, Eosinophils (%) (Auto) 3.8H, Basophils (%) (Auto) 0.5, Neutrophils # (Auto) 9.9H, Lymphocytes # (Auto) 1.2L, Monocytes # (Auto) 1.1H, Eosinophils # (Auto) 0.5, Basophils # (Auto) 0.1, Nucleated Red Blood Cells % (auto) 0.0, Blood Gas Puncture Site UNKNOWN, Blood Gas Bicarbonate Standard 23.9, Venous Blood pH 7.438H, Venous Blood Partial Pressure CO2 34.7L, Venous Blood Partial Pressure O2 64.1H, Venous Blood Total Carbon Dioxide 24.0, Venous Blood HCO3 22.9L, Venous Blood Oxygen Saturation 93.7H, Venous Blood Base Excess -0.6, Anion Gap 6L, Glomerular Filtration Rate > 60.0, Calcium Level 7.9L, Phosphorus Level 2.4#L, Magnesium Level 1.6L, Total Bilirubin 0.7#, Aspartate Amino Transf (AST/SGOT) 28, Alanine Aminotransferase (ALT/SGPT) 18, Alkaline Phosphatase 56, Total Creatine Kinase 817H, Total Protein 5.7L, Albumin 3.0L, Albumin/Globulin Ratio 1.1, Salicylates Level 2.2L 08/21/21 05:51: Blood Gas Bicarbonate Standard 23.5, Arterial Blood pH 7.461H, Arterial Blood Partial Pressure CO2 31.0L, Arterial Blood Partial Pressure O2 91.1, Arterial Blood Total CO2 22.6, Arterial Blood HCO3 21.6L, Arterial Blood Base Excess - 1.2, Arterial Blood Oxygen Saturation 97.3 CBC/BMP Laboratory Tests 08/21/21 05:18 Microbiology Microbiology 08/20/21 Blood Culture - Preliminary, Resulted No growth after 24 hours . All specim... 08/20/21 Blood Culture - Preliminary, Resulted No growth after 24 hours . All specim... Discharge Medications No Active Prescriptions or Reported Meds Allergies Coded Allergies: No Known Allergies (Unverified , 10/01/19) PRAVEENA ESPINOZA MD Aug 21, 2021 13:14
--- NOTE | 2021-08-21 13:23 | ECGEPIP ---
[facility] - ED Test Date: 2021-08-19 Pat Name: ROB LEDEZMA Department: Room: [place] [address] Gender: Male Electrodynamicist: Amee JHA : 2000 Requested By: SAURABH Lubin Order Number: [id number] Reading MD: Jax Castro Measurements Intervals [place] Rate: 117 P: 55 KS: 144 QRS: 72 QRSD: 106 T: 64 QT: 338 QTc: 471 Interpretive Statements Sinus tachycardia Incomplete right bundle branch block new from tracing done 07-31-21 Nonspecific T wave abnormality Electronically Signed on 08-21-2021 13:23:05 EST by Jax Castro
== END 2021-08-21 13:40 | disposition left against medical advice (07) | DRG 816 ==
LOC: M ED 22:49 → M ED INP 08-20 04:00 → ENRESERV 08-20 05:18 → M PCU 08-20 07:45 → ENRESERV 08-20 10:55
PROVIDERS: ADMIT Internal Medicine Pulmonary Disease; ATTEND Internal Medicine Pulmonary Disease
PROC: 5A1945Z Respiratory Ventilation, 24-96 Consecutive Hours (ICD-10-PCS; principal; 2021-08-20)
DX: T40.1X1A Poisoning by heroin, accidental (unintentional), initial encounter (principal); E87.2 Acidosis; T40.721A Poisoning by synthetic cannabinoids, accidental (unintentional), initial encounter; T40.411A Poisoning by fentanyl or fentanyl analogs, accidental (unintentional), initial encounter; F17.200 Nicotine dependence, unspecified, uncomplicated

== ENCOUNTER 2021-11-25 13:28 | Emergency (ER) | payer OTHER ==
[~2021-11-25] VITALS: Ht 175.3 cm; Wt 81.8 kg
[2021-11-25] MEDS ORDERED: LEXA1TAB PO (13:37)
[2021-11-25] MEDS ORDERED: SERO1TAB PO ×2 (13:37→23:53)
[2021-11-25] MEDS ORDERED: SERO50TA PO ×2 (13:37→23:53)
[2021-11-25] MEDS ORDERED: CLEO300C2 PO (13:42)
[2021-11-25] MEDS ORDERED: PRED5TA PO ×2 (13:42→23:53)
[2021-11-25 14:58] LABS: ABG BASE EXCESS 1.8 (-2.0-2.0); ABG HCO3 27.9 MEQ/L (22.0-26.0); ABG O2 SATURATION 82.3 % (95.0-99.0); ABG PARTIAL PRESSURE CO2 48.3 mmHg (35.0-45.0); ABG STANDARD HCO3 25.7 MEQ/L (22.0-26.0); ABG TOTAL CO2 29.3 MEQ/L (22.0-29.0); ABG pH (ARTERIAL) 7.379 UNITS (7.350-7.450)
[2021-11-25 14:59] LABS: BASO # 0.1 10^3/uL (0.0-0.2); BASO % 0.4 % (0.0-1.0); EOS % 0.1 % (0.0-3.0); HEMATOCRIT 46.2 % (42.0-52.0); HEMOGLOBIN 15.8 g/dl (13.5-17.5); LYMPH # 1.6 10^3/uL (1.5-5.0); MEAN CORPUSCULAR HEMOGLOBIN 29.9 pg (27.0-33.0); MEAN CORPUSCULAR HGB CONC 34.2 g/dl (32.0-36.5); MEAN CORPUSCULAR VOLUME 87.5 fl (80.0-96.0); MONO # 0.5 10^3/uL (0.0-0.8); MONO % 4.3 % (2.0-8.0); NEUTROPHILS # 10.2 10^3/uL (1.5-8.5); NEUTROPHILS % 81.7 % (36.0-66.0); PLATELET COUNT, AUTOMATED 211 10^3/uL (150-450); RED BLOOD COUNT 5.28 10^6/uL (4.30-6.10); WHITE BLOOD COUNT 12.5 10^3/uL (4.0-10.0)
[2021-11-25 14:59] LABS: ABG PARTIAL PRESSURE O2 46.2 mmHg (75.0-100.0)
[2021-11-25] MEDS ORDERED: IPRATROPIUM 0.5MG/ALBUTEROL 2.5MG INH SOL UD 3ML (DUONEB) NEB ONE (15:15)
[2021-11-25 15:40] LABS: ALBUMIN 4.4 GM/DL (3.2-5.2); ALT/SGPT 39 U/L (12-78); BILIRUBIN,DIRECT < 0.1 MG/DL (0.0-0.2); BILIRUBIN,TOTAL 0.3 MG/DL (0.2-1.0); BLOOD UREA NITROGEN 13 MG/DL (7-18); CALCIUM LEVEL 9.7 MG/DL (8.5-10.1); CARBON DIOXIDE LEVEL 30 MEQ/L (21-32); CHLORIDE LEVEL 104 MEQ/L (98-107); CREATININE FOR GFR 0.98 MG/DL (0.70-1.30); GLOMERULAR FILTRATION RATE > 60.0 (>60); GLUCOSE, FASTING 94 MG/DL (70-100); NT-PRO BNP 18 PG/ML (<125); POTASSIUM SERUM 4.4 MEQ/L (3.5-5.1); SODIUM LEVEL 139 MEQ/L (136-145); TOTAL PROTEIN 8.2 GM/DL (6.4-8.2)
[2021-11-25] MEDS ORDERED: ISOVUE-370 76% 100ML VIAL As Ordered ONE (16:05)
[2021-11-25] MEDS ORDERED: dexameTHASONE 20MG/5ML VIAL (J1100 PER 1MG) IV ONE (18:55)
[2021-11-25] MEDS ORDERED: RACEPINEPHrine 2.25 % UD INHA INH ONE (18:55)
[2021-11-25] MEDS ORDERED: IPRATROPIUM 0.5MG/ALBUTEROL 2.5MG INH SOL UD 3ML (DUONEB) NEB PRN (21:45)
[2021-11-25] MEDS ORDERED: LEXA5TAB13 PO (23:53)
[2021-11-25] MEDS ORDERED: HOME MED LIST COMPLETE! XX SCH (23:55)
[2021-11-26] MEDS ORDERED: QUEtiapine FUMARATE 100 MG TAB PO ONE (02:10)
[2021-11-26 06:47] VITALS: BP 126/75
== END 2021-11-26 07:16 | disposition short-term general hospital (02) ==
LOC: M ED 13:28
DX: R09.02 Hypoxemia (principal); J38.6 Stenosis of larynx; F19.10 Other psychoactive substance abuse, uncomplicated; F17.200 Nicotine dependence, unspecified, uncomplicated; Z79.899 Other long term (current) drug therapy
CPT/HCPCS: 36600; 70491; 71046; 71275; 80048; 80076; 83880; 84443; 84484; 85025; 85379; 87798; 93005; 93041; 94640; 94760; 96374; 99285; J1100; Q9967

== ENCOUNTER 2022-01-19 14:58 | Emergency (ER) | payer OTHER ==
[~2022-01-19 14:58] MED LIST changes: +CLEO300C2 PO; +LEXA1TAB PO; +LEXA5TAB13 PO; +PRED5TA PO; +SERO1TAB PO; +SERO50TA PO
[2022-01-19] MEDS ORDERED: IPRATROPIUM 0.5MG/ALBUTEROL 2.5MG INH SOL UD 3ML (DUONEB) NEB ONE (15:15)
[2022-01-19 15:36] LABS: BASO # 0.1 10^3/uL (0.0-0.2); BASO % 0.5 % (0.0-1.0); EOS # 0.1 10^3/uL (0.0-0.5); EOS % 0.5 % (0.0-3.0); HEMATOCRIT 43.8 % (42.0-52.0); LYMPH # 1.4 10^3/uL (1.5-5.0); LYMPH % 10.2 % (24.0-44.0); MEAN CORPUSCULAR HEMOGLOBIN 30.9 pg (27.0-33.0); MEAN CORPUSCULAR HGB CONC 34.2 g/dl (32.0-36.5); MEAN CORPUSCULAR VOLUME 90.1 fl (80.0-96.0); MONO # 0.8 10^3/uL (0.0-0.8); MONO % 5.8 % (2.0-8.0); NEUTROPHILS # 10.9 10^3/uL (1.5-8.5); NEUTROPHILS % 82.5 % (36.0-66.0); PLATELET COUNT, AUTOMATED 236 10^3/uL (150-450); RED BLOOD COUNT 4.86 10^6/uL (4.30-6.10); WHITE BLOOD COUNT 13.2 10^3/uL (4.0-10.0)
[2022-01-19 15:50] LABS: ABG BASE EXCESS 0.9 (-2.0-2.0); ABG O2 SATURATION 98.9 % (95.0-99.0); ABG PARTIAL PRESSURE CO2 26.6 mmHg (35.0-45.0); ABG PARTIAL PRESSURE O2 127.7 mmHg (75.0-100.0); ABG STANDARD HCO3 25.3 MEQ/L (22.0-26.0); ABG TOTAL CO2 22.8 MEQ/L (22.0-29.0); ABG pH (ARTERIAL) 7.535 UNITS (7.350-7.450)
[2022-01-19] MEDS ORDERED: LORazepam 2 MG/ML VIAL IV STA (15:59)
[2022-01-19 16:03] LABS: ACETAMINOPHEN LEVEL < 2.0 UG/ML (10.0-30.0); ETHYL ALCOHOL (ETHANOL) < 0.003 % (0.000-0.010); SALICYLATE LEVEL < 1.7 MG/DL (5.0-30.0)
[2022-01-19 16:14] LABS: ALBUMIN 4.3 GM/DL (3.2-5.2); ALT/SGPT 32 U/L (12-78); BILIRUBIN,DIRECT < 0.1 MG/DL (0.0-0.2); BILIRUBIN,TOTAL 0.5 MG/DL (0.2-1.0); BLOOD UREA NITROGEN 9 MG/DL (7-18); CALCIUM LEVEL 9.9 MG/DL (8.5-10.1); CARBON DIOXIDE LEVEL 23 MEQ/L (21-32); CHLORIDE LEVEL 109 MEQ/L (98-107); CREATININE FOR GFR 1.16 MG/DL (0.70-1.30); GLOMERULAR FILTRATION RATE > 60.0 (>60); GLUCOSE, FASTING 113 MG/DL (70-100); NT-PRO BNP 15 PG/ML (<125); POTASSIUM SERUM 3.9 MEQ/L (3.5-5.1); SODIUM LEVEL 141 MEQ/L (136-145); TOTAL PROTEIN 7.7 GM/DL (6.4-8.2)
[2022-01-19] MEDS ORDERED: BACITRACIN OINTMENT 30GM TUBE TOP ONE (16:20)
[2022-01-19 18:09] LABS: AMPHETAMINES LEVEL URINE NEGATIVE (NEGATIVE); BARBITURATES URINE NEGATIVE (NEGATIVE); BENZODIAZEPINES URINE NEGATIVE (NEGATIVE); CANNABINOIDS URINE NEGATIVE (NEGATIVE); COCAINE METABOLITE URINE NEGATIVE (NEGATIVE); METHADONE URINE NEGATIVE (NEGATIVE); OPIATES URINE NEGATIVE (NEGATIVE); PHENCYCLIDINE URINE NEGATIVE (NEGATIVE)
[2022-01-19 19:34] VITALS: BP 124/63
== END 2022-01-19 19:35 | disposition home or self-care (01) ==
LOC: M ED 14:58
DX: S50.811A Abrasion of right forearm, initial encounter (principal); S50.812A Abrasion of left forearm, initial encounter; X78.9XXA Intentional self-harm by unspecified sharp object, initial encounter; Y92.149 Unspecified place in prison as the place of occurrence of the external cause; Y93.9 Activity, unspecified; Y99.9 Unspecified external cause status; R06.02 Shortness of breath; R00.0 Tachycardia, unspecified; F19.10 Other psychoactive substance abuse, uncomplicated; F17.200 Nicotine dependence, unspecified, uncomplicated; F32.A Depression, unspecified; Z79.899 Other long term (current) drug therapy
CPT/HCPCS: 36415; 36600; 71045; 80048; 80076; 80143; 80307; 82077; 82803; 83880; 84443; 84484; 85025; 87486; 87581; 87633; 87798; 93005; 93041; 94640; 94760; 96374; 99285; J2060

== ENCOUNTER 2022-06-29 12:16 | Emergency (ER) | payer MEDICAID, OTHER ==
[2022-06-29] MEDS ORDERED: METHADONE 10MG TAB PO ONE (15:00)
[2022-06-29] MEDS ORDERED: DOXY-443 PO (15:05)
[2022-06-29 16:44] VITALS: BP 124/58
[2022-06-29] MEDS ORDERED: LORazepam 2 MG TAB PO STA (16:58)
== END 2022-06-29 17:15 | disposition home or self-care (01) ==
LOC: M ED 12:16
DX: F19.939 Other psychoactive substance use, unspecified with withdrawal, unspecified (principal); G25.71 Drug induced akathisia; R21 Rash and other nonspecific skin eruption; F06.31 Mood disorder due to known physiological condition with depressive features; F17.200 Nicotine dependence, unspecified, uncomplicated; Z79.899 Other long term (current) drug therapy
CPT/HCPCS: 99284; S0109

== ENCOUNTER 2023-06-27 01:18 | Emergency (ER) | payer MEDICAID ==
[~2023-06-27] VITALS: Ht 175.3 cm; Wt 70.2 kg
[~2023-06-27 01:18] MED LIST changes: +DOXY-443 PO; -HM S0.65 NARES; +SALI0.6531 NARES
[2023-06-27 01:20] VITALS: BP 134/79; TEMP 98.1; O2SAT 98
[2023-06-27] MEDS ORDERED: SERO1TAB PO ×2 (01:29→03:04)
[2023-06-27] MEDS ORDERED: SERO200T PO ×2 (01:29→03:04)
[2023-06-27] MEDS ORDERED: PROZ40CA PO ×2 (01:29→03:04)
== END 2023-06-27 03:33 | disposition home or self-care (01) ==
LOC: M ED 01:18
DX: Z76.0 Encounter for issue of repeat prescription (principal)

== ENCOUNTER 2023-06-30 00:51 | Emergency (ER) | payer MEDICAID ==
[~2023-06-30] VITALS: Ht 175.3 cm; Wt 78.7 kg
[~2023-06-30 00:51] MED LIST changes: +PROZ40CA PO; +SERO200T PO
[2023-06-30 03:18] VITALS: BP 144/75; TEMP 98; O2SAT 98
== END 2023-06-30 04:20 | disposition left against medical advice (07) ==
LOC: M ED 00:51
DX: Z53.21 Procedure and treatment not carried out due to patient leaving prior to being seen by health care provider (principal)

== ENCOUNTER 2023-07-03 19:07 | Emergency (ER) | payer MEDICAID ==
[~2023-07-03] VITALS: Ht 175.3 cm; Wt 69.6 kg
[2023-07-03 19:57] VITALS: TEMP 98.5
[2023-07-03 20:07] VITALS: O2SAT 97
[2023-07-03 20:17] VITALS: BP 115/88
[2023-07-04] MEDS ORDERED: SUBO8MIS SL (09:44)
== END 2023-07-03 20:19 | disposition left against medical advice (07) ==
LOC: EDBD 19:07 → M ED 19:07
DX: Z53.21 Procedure and treatment not carried out due to patient leaving prior to being seen by health care provider (principal)

== ENCOUNTER 2023-07-04 09:22 | Emergency (ER) | payer MEDICAID ==
[~2023-07-04] VITALS: Ht 175.3 cm; Wt 68.2 kg
[2023-07-04] MEDS ORDERED: SUBO8MIS SL (09:44)
[2023-07-04] MEDS ORDERED: NS 1,000 ML IV ONE (10:10)
[2023-07-04] MEDS ORDERED: dexAMETHasone 20MG/5ML VIAL IV ONE (10:10)
[2023-07-04 10:28] LABS: BASO % 0.4 % (0.0-1.0); EOS % 0.1 % (0.0-3.0); LYMPH # 1.1 10^3/uL (1.5-5.0); LYMPH % 10.8 % (24.0-44.0); MEAN CORPUSCULAR HEMOGLOBIN 29.1 pg (27.0-33.0); MEAN CORPUSCULAR HGB CONC 33.3 g/dl (32.0-36.5); MEAN CORPUSCULAR VOLUME 87.2 fl (80.0-96.0); MONO # 0.9 10^3/uL (0.0-0.8); MONO % 8.4 % (2.0-8.0); NEUTROPHILS # 8.4 10^3/uL (1.5-8.5); PLATELET COUNT, AUTOMATED 294 10^3/uL (150-450); RED BLOOD COUNT 4.47 10^6/uL (4.30-6.10); WHITE BLOOD COUNT 10.5 10^3/uL (4.0-10.0)
[2023-07-04] MEDS ORDERED: ISOVUE-370 76% 100ML VIAL As Ordered ONE (10:33)
[2023-07-04 15:09] VITALS: BP 115/62; TEMP 97; O2SAT 97
[2023-07-05 08:19] LABS: AMPHETAMINES LEVEL URINE POSITIVE (NEGATIVE)
[2023-07-05 08:20] LABS: BARBITURATES URINE NEGATIVE (NEGATIVE); BENZODIAZEPINES URINE NEGATIVE (NEGATIVE); CANNABINOIDS URINE POSITIVE (NEGATIVE); COCAINE METABOLITE URINE NEGATIVE (NEGATIVE); OPIATES URINE NEGATIVE (NEGATIVE); PHENCYCLIDINE URINE NEGATIVE (NEGATIVE)
[2023-07-05 08:25] LABS: ALKALINE PHOSPHATASE 80 U/L (40-129); ALT/SGPT 172 U/L (1-41); AST/SGOT 129 U/L (5-40); BILIRUBIN,TOTAL < 0.7 MG/DL (0.2-1.3); BLOOD UREA NITROGEN 12 MG/DL (7-21); CALCIUM LEVEL 9.4 MG/DL (8.4-10.2); CARBON DIOXIDE LEVEL 29 MEQ/L (22-30); CHLORIDE LEVEL 99 MEQ/L (98-107); CREATININE FOR GFR 0.7 MG/DL (0.7-1.5); GLOMERULAR FILTRATION RATE > 60.0 (>60); GLUCOSE, FASTING 91 MG/DL (70-99); POTASSIUM SERUM 4.1 MEQ/L (3.6-5.0); SODIUM LEVEL 139 MEQ/L (134-153)
[2023-07-05 08:26] LABS: ALBUMIN 4.2 G/DL (3.9-5.0); BILIRUBIN,DIRECT < 0.2 MG/DL (0.1-0.4); TOTAL PROTEIN 6.5 G/DL (6.3-8.2)
[2023-07-05 08:27] LABS: SALICYLATE LEVEL < 3.0 MG/DL (2.0-20.0)
[2023-07-05 08:32] LABS: ETHYL ALCOHOL (ETHANOL) < 0.00 % (0.00-0.01)
== END 2023-07-04 15:27 | disposition home or self-care (01) ==
LOC: M ED 09:22
DX: R07.0 Pain in throat (principal); F19.10 Other psychoactive substance abuse, uncomplicated; I45.9 Conduction disorder, unspecified; F39 Unspecified mood [affective] disorder; F17.200 Nicotine dependence, unspecified, uncomplicated; Z79.899 Other long term (current) drug therapy; Z79.891 Long term (current) use of opiate analgesic
CPT/HCPCS: 70491; 71045; 80047; 80048; 80076; 80143; 80307; 82077; 85025; 87428; 93005; 93041; 96361; 96374; 99284; J1100; Q9967